=== PATIENT | female | born 1945 | race Hispanic/Latino ===

== ENCOUNTER 2018-06-28 15:38 | Outpatient (CLI) | payer MEDICARE, BC ==
--- NOTE | 2018-06-28 17:01 | MRI ---
MRI OF BRAIN WITH AND WITHOUT CONTRAST: 06/28/18 HISTORY: Multiple myeloma. Balance issues. COMPARISON: None. TECHNIQUE: Brain MRI is performed with and without intravenous gadolinium administration. Multisequential, multi planar imaging is performed. FINDINGS: No hemorrhage on the axial gradient echo sequence. No parenchymal mass, mass effect or midline shift. Age appropriate atrophy. Cortical leger-white matte r differentiation is preserved. Ventricles and sulci are patent and symmetric. Confluent T2 and FLAIR white matter hyperintensity due to chronic small vessel ischemic change. Adequ ate aeration of the sinuses and mastoid air cells. No abnormal signal intensity in the calvarium. No pathologic enhancement of the brain parenchyma. IMPRESSION: 1. No pathologic enhancement of the brain parenchyma. No abnormal marrow signal intensity in the visualized calvarium. 2. Age appropriate atrophy. Chronic small vessel ischemic changes of the white matter identified . POS: [facility]
--- NOTE | 2018-06-28 18:09 | RAD ---
HISTORY: Multiple myeloma staging. C90.00 - skeletal bone survey. A total of 19 radiographs of the skeleton obtained. The calvarium demonstrates a small area of lucency in the parietal bone. I cannot determine whether t his is right or left parietal bone. The rest of the calvarium does not demonstrate any significant ev idence of abnormalities. The cervical spine is unremarkable. Vertebroplasty changes seen in the lower thoracic spine with exte nsive osteoporosis seen in the thoracic spine. The lumbar spine is unremarkable. Atherosclerotic calcifications of the aorta seen. Upper and lower extremities in the visualized portions are unremarkable with no definite evidence of obvious lytic lesions. The pelvis is also unremarkable. IMPRESSION: Possible small parietal calvarial lesion. POS: [facility]
== END 2018-06-28 15:39 | disposition home or self-care (01) ==
LOC: MRI 15:38
PROVIDERS: ATTEND Internal Medicine Hematology & Oncology
DX: C90.00 Multiple myeloma not having achieved remission (principal); R53.1 Weakness; N18.4 Chronic kidney disease, stage 4 (severe); D63.1 Anemia in chronic kidney disease; D50.9 Iron deficiency anemia, unspecified
CPT/HCPCS: 70553; 77075; 80053; 82232; 82248; 83615; 83883; 84100; 84165; 84550

== ENCOUNTER 2018-07-05 09:08 | Day surgery (SDC) | payer MEDICARE, BC ==
[2018-07-04 14:43] VITALS: BMI 25.4
[2018-07-05 09:48] LABS: INR-International Normal Ratio 1.1; PTT 30.1 SEC (22.9-36.1); Prothrombin Time 14.2 SEC (12.0-14.7)
--- NOTE | 2018-07-05 13:17 | CT ---
CT GUIDED PERCUTANEOUS BONE MARROW ASPIRATION AND BIOPSY RIGHT ILIAC BONE: 07/05/2018 HISTORY: Patient with subcutaneous soft tissue swelling, predominantly involving the lower extremities. Findi ngs worrisome for multiple myeloma. TECHNIQUE: The procedure, including the risks and complications, was explained to the patient, and informed cons ent was obtained. The patient was placed on the CT scan table in the prone position. Grid localizer s were placed over each iliac bone, and a noncontrasted CT scan was obtained. An area overlying the right iliac bone was marked, and the area was meticulously prepped and draped in the usual sterile fa shion. The skin and subcutaneous tissues were infiltrated with buffered 1% Lidocaine for local anesthesia. A small skin incision was made. An 11 gauge bone biopsy needle was advanced to the iliac bone, and p osition was confirmed with three axial noncontrasted CT images. The needle was then advanced just th rough the cortex, and bone marrow aspirate was obtained with approximately 8 mL of bone marrow aspira te obtained. A 1.5 cm bone biopsy was then performed with a drill and bone biopsy needle. Hemostasi s was achieved with direct pressure. The patient tolerated the procedure well and without immediate complications. FINDINGS: Review of the pre-biopsy images demonstrate gas incidentally within the urinary bladder, with a focus of gas seen just outside the wall of the urinary bladder, which may be a gas track in the region of the detrusor muscle. Findings are worrisome for emphysematous cystitis. As a result, a noncontraste d CT scan through the pelvis was also obtained. Please see that dictation for further details. Steffany ent will be transported to the emergency department for further treatment. Findings were discussed w deana Guerrero, the emergency department physician, on 07/05/2018, at 1248 hours. IMPRESSION: 1. Evidence of gas within the wall of the urinary bladder, with the suggestion of foci of gas just o utside the urinary bladder, and findings are worrisome for emphysematous cystitis. The patient will be transported to the emergency department for further treatment. 2. Small to moderate amount of ascites with subcutaneous edema, circumferentially involving the lowe r abdomen and pelvis, as well as involving the visualized upper extremities. 3. Dense atherosclerotic calcifications. 4. Technically successful CT guided bone marrow aspiration and biopsy from the right iliac bone. Mikey thalexi is currently pending. CODE CR POS: [facility]
--- NOTE | 2018-07-05 13:26 | CT ---
NONCONTRAST CT PELVIS: DATE: 07/05/18. HISTORY: Gas seen within the urinary bladder wall on imaging for CT-guided bone marrow aspiration and biopsy o f the iliac bone. As a result, a CT scan of the pelvis was obtained for further evaluation. FINDINGS: There is gas seen within the wall of the urinary bladder with foci of gas seen adjacent to the right aspect of the urinary bladder which appears to be just outside the wall of the urinary bladder and ma y be related to gastrectomy in the region of the detrusor muscle. These findings are worrisome for e mphysematous cystitis. The uterus is not visualized, likely related to hysterectomy. There is small to moderate amount of intraperitoneal free fluid seen within the visualized lower abd omen and upper pelvis. Also, there is evidence of subcutaneous edema diffusely involving the pelvis and proximal upper extremities. Dense vascular calcifications are seen in the iliac and femoral arteries. IMPRESSION: 1. Evidence for emphysematous cystitis. The patient will be transported to the emergency department for further evaluation and treatment. These findings were discussed with Dr. Guerrero in the emergency department. The patient reportedly had prior CT scan obtained at [facility] recently, but those images are not available for evaluation. 2. Ascites. 3. Subcutaneous edema. POS: [facility]
--- NOTE | 2018-07-06 13:25 | CT ---
CT GUIDED PERCUTANEOUS BONE MARROW ASPIRATION AND BIOPSY RIGHT ILIAC BONE: 07/05/2018 HISTORY: Patient with subcutaneous soft tissue swelling, predominantly involving the lower extremities. Findi ngs worrisome for multiple myeloma. TECHNIQUE: The procedure, including the risks and complications, was explained to the patient, and informed cons ent was obtained. The patient was placed on the CT scan table in the prone position. Grid localizer s were placed over each iliac bone, and a noncontrasted CT scan was obtained. An area overlying the right iliac bone was marked, and the area was meticulously prepped and draped in the usual sterile fa shion. The skin and subcutaneous tissues were infiltrated with buffered 1% Lidocaine for local anesthesia. A small skin incision was made. An 11 gauge bone biopsy needle was advanced to the iliac bone, and p osition was confirmed with three axial noncontrasted CT images. The needle was then advanced just th rough the cortex, and bone marrow aspirate was obtained with approximately 8 mL of bone marrow aspira te obtained. A 1.5 cm bone biopsy was then performed with a drill and bone biopsy needle. Hemostasi s was achieved with direct pressure. The patient tolerated the procedure well and without immediate complications. FINDINGS: Review of the pre-biopsy images demonstrate gas incidentally within the urinary bladder wall, with a focus of gas seen just outside the wall of the urinary bladder, which may be a gas tracking in the re gion of the detrusor muscle. Findings are worrisome for emphysematous cystitis. As a result, a nonc ontrasted CT scan through the pelvis was also obtained. Please see that dictation for further detail s. Patient will be transported to the emergency department for further treatment. Findings were dis cussed with Dr. Guerrero, the emergency department physician, on 07/05/2018, at 1248 hours. IMPRESSION: 1. Evidence of gas within the wall of the urinary bladder, with the suggestion of foci of gas just o utside the urinary bladder, and findings are worrisome for emphysematous cystitis. The patient will be transported to the emergency department for further treatment. 2. Small to moderate amount of ascites with subcutaneous edema, circumferentially involving the lowe r abdomen and pelvis, as well as involving the visualized upper extremities. 3. Dense atherosclerotic calcifications. 4. Technically successful CT guided bone marrow aspiration and biopsy from the right iliac bone. Pa thalexi is currently pending. CODE CR
== END 2018-07-05 13:25 | disposition short-term general hospital (02) ==
LOC: CT 09:08
PROVIDERS: ATTEND Internal Medicine Hematology & Oncology
PROC: 0QB23ZX Excision of Right Pelvic Bone, Percutaneous Approach, Diagnostic (ICD-10-PCS; principal; 2018-07-05)
DX: M79.89 Other specified soft tissue disorders (principal); E10.9 Type 1 diabetes mellitus without complications; K21.9 Gastro-esophageal reflux disease without esophagitis; E78.00 Pure hypercholesterolemia, unspecified; Z79.82 Long term (current) use of aspirin; Z79.899 Other long term (current) drug therapy
CPT/HCPCS: 20225; 36415; 72192; 77002; 85610; 85730; 88184; 88237; 88264; 88280

== ENCOUNTER 2018-07-05 13:27 | Inpatient (IN) | payer MEDICARE, BC ==
[~2018-07-05 13:27] MED LIST: Sodium Bicarbonate 2.5 MEQ/5 ML VIAL ONE
[2018-07-05 15:03] LABS: Bilirubin Small (Negative); Blood, Urine Large (Negative); Clarity CLOUDY (Clear); Glucose, Urine (Dipstick) 250 mg/dL (Negative); Leukocyte Small (Negative); Nitrite Negative (Negative); Protein, Urine (Dipstick) 300 mg/dL (Neg-Trace); Specific Gravity, Urine 1.019 (1.002-1.036); pH, Urine 5.5 (5.0-9.0)
[2018-07-05 15:04] LABS: Bacteria/HPF 4+ HPF (None Seen); Squamous Epithelial 0-3 HPF (0-3)
[2018-07-05 15:09] LABS: Hyaline Casts/LPF 7-10 HYALINE CAST LPF (0-3 Hyaline); Pathc Cast-AUWi Flag 3.65 (0-2.49)
[2018-07-05 16:00] LABS: ALT (SGPT) 34 U/L (8-55); AST (SGOT) 66 U/L (5-34); Albumin 1.7 g/dL (3.4-4.8); Alkaline Phosphatase 78 U/L (40-150); Anion Gap 11 mmol/L (10-20); BUN (Urea Nitrogen) 45 mg/dL (9.8-20.1); Calc. Creatinine Clearance 0 mL/min (70-130); Calcium 7.5 mg/dL (7.8-10.44); Carbon Dioxide 23 mmol/L (23-31); Chloride 107 mmol/L (98-107); Estimated GFR-MDRD 16; Globulin 3.1 g/dL (2.4-3.5); Glucose 188 mg/dL (83-110); Protein, Total 4.8 g/dL (6.0-8.3); Sodium 138 mmol/L (136-145)
[2018-07-05 16:07] LABS: Potassium 2.8 mmol/L (3.5-5.1)
[2018-07-05 16:09] LABS: Anisocytosis SLIGHT = 6-15 cells (100X) (0-5/hpf); Hemoglobin 11.7 g/dL (12.0-16.0); Hypochromia SLIGHT = 6-15 cells (100X) (0-5/hpf); Lymphocytes 4 % (21-51); MDiff Complete? YES; Mean Corpuscular HGB CONC 32.7 g/dL (32.0-36.0); Mean Corpuscular Hemoglobin 29.9 pg (27.0-31.0); Mean Corpuscular Volume 91.7 fL (78.0-98.0); Mean Platelet Volume 12.5 fL (7.4-10.4); Monocytes 3 % (0-10); Neutrophil 93 % (42-75); PLT Morphology Comment PLT clumps seen-ADEQ; Platelet Count 101 thou/uL (130-400); Polychromasia SLIGHT = 2-3 cells (100X) (0-2/hpf); RBC Distribution Width 14.8 % (11.5-14.5); White Blood Cell (WBC) Count 4.9 thou/uL (4.8-10.8)
[2018-07-05] MEDS ORDERED: Potassium Chloride 20 MEQ TAB ONE (16:44)
--- NOTE | 2018-07-05 17:08 | RAD ---
PORTABLE AP CHEST X-RAY 07/05/18 HISTORY: Free air in the urinary bladder wall. Pain left side for a couple of weeks. COMPARISON: None available. FINDINGS: The cardiac silhouette and pulmonary vasculature are within normal limits. The lungs are clear. Vascu lar calcifications are seen in the thoracic aorta. Osteopenia is present. Vascular calcifications are seen in the thoracic aorta. Osteopenia is present. Vertebroplasty changes are seen in the lower thor acic spine. Surgical clips overlie the right upper quadrant. IMPRESSION: No acute cardiopulmonary process. POS: [facility]
[2018-07-05] MEDS ORDERED: Nitroglycerin 0.4 MG TAB (25 Tab Bottle) SL PRN (17:36)
[2018-07-05] MEDS ORDERED: Loratadine 10 MG TAB PO PRN (17:36)
[2018-07-05] MEDS ORDERED: Senokot 8.6 MG TAB PO PRN ×2 (17:36)
[2018-07-05] MEDS ORDERED: Diabetic Tussin 200 MG/10 ML UDCUP PO PRN (17:36)
[2018-07-05] MEDS ORDERED: Bisacodyl 5 MG TAB PO PRN ×2 (17:36)
[2018-07-05] MEDS ORDERED: Calcium Carbonate 500 MG ChewTAB PO PRN ×2 (17:36)
[2018-07-05] MEDS ORDERED: Benzonatate 100 MG CAP PO PRN (17:36)
[2018-07-05] MEDS ORDERED: Mag-Al 1200 mg/1200 mg/30 ML UDCUP PO PRN ×2 (17:36)
[2018-07-05] MEDS ORDERED: hydrALAZINE 20 MG/ML VIAL SLOW IVP PRN (17:36)
[2018-07-05] MEDS ORDERED: Acetaminophen 325 MG TAB PO PRN (17:36)
[2018-07-05] MEDS ORDERED: Magnesium Sulfate 2 GM/100 ML BAG ONE (17:46)
[2018-07-05] MEDS ORDERED: cefTRIAXone\\ROCEPHIN 2 GM VIAL ONE (17:46)
[2018-07-05] MEDS ORDERED: cloNIDine 0.1 MG TAB ONE ×2 (17:59→18:04)
[2018-07-05] MEDS ORDERED: Potassium Chloride 20 MEQ in Sodium Chloride 0.9% 250 ML 250 ML IVPB ONE (18:00)
[2018-07-05] MEDS ORDERED: HumaLOG 300 UNITS/3 ML VIAL SC PRN (18:12)
[2018-07-05] MEDS ORDERED: Dextrose 50% Abboject 50 ML SYRINGE SLOW IVP PRN (18:12)
[2018-07-05] MEDS ORDERED: Dextrose 5% in Water 1,000 ML IV PRN (18:12)
--- NOTE | 2018-07-05 20:07 | CON ---
DATE OF CONSULTATION: 07/05/2018 NEPHROLOGY CONSULTATION REASON FOR CONSULTATION: Hypokalemia and CKD. HISTORY OF PRESENT ILLNESS: This is a 73-year-old female who developed anemia as well as acute kidne y injury was noted to have a creatinine of 2.9, prior baseline was 2.7. One month ago, she has also developed hypokalemia. The patient is being admitted for emphysematous cystitis. The patient denies known headache, numbness, tingling or weakness. The patient is also suffering from acute tubular ne crosis for which she is being treated. PAST MEDICAL HISTORY: Significant for hypertension, anemia, CKD, history of bone marrow biopsy, hist ory of emphysematous cystitis. Other pertinent past medical history is reviewed. SOCIOECONOMIC HISTORY: No alcohol use. FAMILY HISTORY: Negative for ESRD. REVIEW OF SYSTEMS: A 15-point review of systems was performed and was negative except for positives noted above. GENERAL: Weakness- HEAD: Headache- NECK: No swelling or lumps. NOSE: No epistaxis or discharge. EYES: No diplopia or pain. 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 NEUROPSYCHIATIC SYSTEMS: No suicidal ideation. No ideation. SKIN: Denies any rash or ulcer. CONSTITUTIONAL: No fever or chills. PHYSICAL EXAMINATION: GENERAL: Patient is awake, alert. VITAL SIGNS: Reviewed. HEAD/NECK: Normocephalic. Atraumatic. EYES: EOMI. No deformity. EARS: Clear. No ulcers. NOSE: Intact. No lesions. MOUTH: Clear. No discharge. THROAT: Clear. No exudate. LUNGS: Clear. No crackles. CARDIAC: S1, S2. No rub. ABDOMEN: Benign. BS+. GENITALIA/RECTUM: Ac absent. BACK/EXTREMITIES: Edema 0+ Ulcer- NEUROLOGICAL: Alert and motor intact. SKIN: Rash- Bruise- LYMPHATICS: Edema- Ulcer- LABORATORY DATA: Urine shows 300 protein with too numerous to count WBCs, hemoglobin 11.7, creatinin e is 2.9. ASSESSMENT AND RECOMMENDATIONS: 1. Acute kidney injury with chronic kidney disease, workup is pending. Most likely has acute tubula r necrosis versus glomerulonephritis. 2. Edema, anasarca. Would recommend using Lasix after potassium has been corrected. 3. Hypokalemia. Recommend 40 mEq of potassium by mouth and recheck potassium in a few hours. 4. Medications based on glomerular filtration rate are appropriate. No indication for dialysis. 5. Hypomagnesemia. Would recommend 1 gram of mag sulfate replacement.
--- NOTE | 2018-07-05 21:05 | HP ---
DATE OF ADMISSION: 07/05/2018 PRIMARY CARE PHYSICIAN: Dr. Torres at [facility]. CHIEF COMPLAINT: Air in the bladder on CT scan. HISTORY OF PRESENT ILLNESS: Ms. Escalante is a pleasant 73-year-old female with past medical history of chronic kidney disease, currently undergoing workup at [facility] as well as a history of un explained anemia under care of Dr. Coon who was sent to the emergency room for the above-mentioned complaint. History is mainly obtained by the patient herself as well as her and electronic medical records have been reviewed. The patient is getting Nephrology workup done at [facility] for chronic kidney disease, which wa s diagnosed earlier this year. She reports that she has been going to work up until March of this yea r when she had a mechanical fall and since then she has been feeling very weak. She was found to hav e chronic kidney disease and today, she underwent a bone marrow biopsy as ordered by Dr. Coon for workup of her unexplained chronic anemia. The CT scan done for the bone marrow biopsy showed possibl e air in the bladder and question of emphysematous cystitis. Labs were checked and she was found to have hypokalemia with a potassium of 2.8, which the patient reports is not new for her. She has been hypokalemic and is undergoing workup for that. Her urinalysis showed +4 bacteria, so she is now devin ng admitted for hypokalemia as well as urinary tract infection and possible emphysematous cystitis. The patient reports feeling very weak and tired. She denies any chest pain or shortness of breath, b ut complains of having increased swelling in her legs and weight gain. She has poor appetite. She i s very weak and mostly lies in bed because of this. She denies any nausea, vomiting, diarrhea. She does have some diffuse abdominal pain mainly in the left upper quadrant. Denies any dysuria, frequen cy, urgency or any blood in her stools. PAST MEDICAL HISTORY: 1. Hypertension. 2. Chronic kidney disease stage 3. 3. Chronic anemia. 4. Diabetes mellitus type 2. PAST SURGICAL HISTORY: 1. Bone marrow biopsy earlier this morning. 2. Appendectomy. 3. History of what sounds like carotid arterial stenting versus endarterectomy. 4. Cholecystectomy. 5. Hysterectomy. PSYCHIATRIC: No anxiety, no depression. SOCIAL HISTORY: She is and lives with her . No history of drug, tobacco or alcohol a buse. FAMILY HISTORY: No significant family history of any chronic kidney disease. No history of any canc er, premature coronary artery disease or stroke. ALLERGIES: No known medication allergies. CURRENT MEDICATIONS: As follows. As per the ER record and further need to be confirmed. Bumex 1 mg daily, fenofibric acid 135 mg daily, losartan 50 mg daily, metoprolol 100 mg daily, vitamin D3 2000 units daily, Zofran as needed. REVIEW OF SYSTEMS: A 12-point review of systems was done. It is negative except for those mentioned in the history and physical. LABORATORY DATA: CBC shows hemoglobin 11.7, which is normochromic normocytic. Platelet count of 101 ,000. She has 93% neutrophils with normal WBC count. Serum chemistries show potassium of 2.8, BUN 4 5, creatinine 2.96 with GFR of 16, glucose 188. Lactic acid normal, magnesium 1.5, AST 60, otherwise normal liver enzymes, BNP of 580. Chest x-ray by my review shows no cardiopulmonary abnormalities. A 12-lead EKG by my review shows nonspecific ST and T-wave abnormalities in the lateral leads, sinus rhythm with a heart rate of [address] scan done earlier today shows findings of air i n the urinary bladder concerning with emphysematous cystitis. Ascites is seen and subcutaneous edema is seen. PHYSICAL EXAMINATION: VITAL SIGNS: Upon presentation, heart rate 73, respirations 17, saturating 97% on room air, temperat ure 97.6, blood pressure 210/93. GENERAL: She appears pale and chronically ill. No acute distress. Awake, alert, oriented x3. HEENT: Mild scleral icterus is noticed. Head is normocephalic, atraumatic. Pupils equal and reacti ve to light and accommodation. Extraocular movement intact. NECK: Supple without any lymphadenopathy, JVD or bruit. CHEST: Clear to auscultation without any wheezing, rales or rhonchi. CARDIOVASCULAR: Rate and rhythm is regular without any murmur, rubs or gallops. ABDOMEN: Mildly tender to palpation in the left upper quadrant without any palpable hepatosplenomega ly. No fluid wave. No guarding, rebound or rigidity. EXTREMITIES: Show pitting edema bilaterally extending from the foot to midcalf. SKIN: Shows ecchymosis and bruising in bilateral upper extremities. NEUROLOGIC: Nonfocal. PSYCHIATRIC: Normal affect. IMPRESSION AND PLAN: 1. Emphysematous cystitis. The patient will be treated with broad spectrum IV antibiotics. She chio l be started on levofloxacin and Rocephin. We will obtain a renal ultrasound to rule out any abscess formation or extension of the infection. She is currently hemodynamically stable and sepsis will al so be ruled out. We will also request consultation with Urology in case she needs any intervention f or this. 2. Hypertensive urgency. We will restart her home medications once confirmed and use p.r.n. antihyp ertensives for now. Reportedly, she is undergoing a workup for secondary hypertension by her nephrol ogist at [facility]. 3. Hypokalemia. She has received a total of 60 mEq of potassium in the emergency room along with ma gnesium sulfate IV. We will consult Nephrology and recheck labs later in the evening today after sup plementation. Once again, this is chronic for the patient. 4. Chronic kidney disease. 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 She is undergoing workup for possible multiple myeloma versus monoclonal gammop athy of undetermined significance. She had a bone survey done earlier this month with cher Birdh showed possible small lesion in the parietal bone. She does not have any other bony lesions on the skeletal survey. 5. Abdominal pain. We will get an abdominal ultrasound to rule out hepatosplenomegaly and excessive ascites as a cause of her left upper quadrant tenderness. I do not, however, feel any fluid wave on physical examination. 6. Anasarca secondary to nephrotic syndrome. At this time, we will hold the diuretics until the pot assium has been corrected. We will also obtain a transthoracic echocardiogram to rule out cardiac ca uses of third spacing of the fluid. The patient has not had this done at [facility] as far as I could tell. 7. Code status: Full code. Discussed with the patient and her . 8. Deep venous thrombosis and gastrointestinal prophylaxis. DISPOSITION: Ms. Escalante is currently being admitted to the hospital for emphysematous cystitis as well as hypertensive urgency and hypokalemia and hypomagnesemia. Her estimated length of stay at this time is 2-3 midnights. Further management will depend upon her clinical course.
[2018-07-05] MEDS: Famotidine 20 MG TAB PO SCH (21:10)
[2018-07-05] MEDS: Heparin 5,000 UNITS/ML VIAL SC SCH (21:10)
[2018-07-05 22:37] LABS: Anion Gap 9 mmol/L (10-20); BUN (Urea Nitrogen) 47 mg/dL (9.8-20.1); Calc. Creatinine Clearance 0 mL/min (70-130); Calcium 7.1 mg/dL (7.8-10.44); Carbon Dioxide 24 mmol/L (23-31); Chloride 109 mmol/L (98-107); Estimated GFR-MDRD 16; Glucose 214 mg/dL (83-110); Magnesium 1.9 mg/dL (1.6-2.6); Potassium 3.3 mmol/L (3.5-5.1); Sodium 139 mmol/L (136-145)
[2018-07-06 05:03] LABS: #Eosinphils 0.1 thou/uL (0.0-0.7); #Lymphocytes 1.3 thou/uL (1.20-3.40); #Monocytes 0.3 thou/uL (0.11-0.59); #Neutrophils 1.7 thou/uL (1.40-6.50); %Basophils 0.5 % (0.0-1.0); %Eosinophils 1.7 % (0.0-10.0); %Lymphocytes 38.1 % (21.0-51.0); %Monocytes 10.2 % (0.0-10.0); %Neutrophils 49.5 % (42.0-75.0); Hemoglobin 9.8 g/dL (12.0-16.0); Mean Corpuscular HGB CONC 31.9 g/dL (32.0-36.0); Mean Corpuscular Hemoglobin 29.6 pg (27.0-31.0); Mean Corpuscular Volume 92.7 fL (78.0-98.0); Mean Platelet Volume 11.4 fL (7.4-10.4); Platelet Count 144 thou/uL (130-400); Red Blood Cell (RBC) Count 3.32 mill/uL (4.20-5.40); White Blood Cell (WBC) Count 3.3 thou/uL (4.8-10.8)
[2018-07-06 05:25] LABS: Anion Gap 10 mmol/L (10-20); BUN (Urea Nitrogen) 45 mg/dL (9.8-20.1); Calc. Creatinine Clearance 17 mL/min (70-130); Calcium 6.9 mg/dL (7.8-10.44); Carbon Dioxide 22 mmol/L (23-31); Chloride 111 mmol/L (98-107); Estimated GFR-MDRD 16; Glucose 212 mg/dL (83-110); Potassium 3.6 mmol/L (3.5-5.1); Sodium 139 mmol/L (136-145)
--- NOTE | 2018-07-06 08:12 | ULT ---
ABDOMINAL ULTRASOUND: DATE: 07/06/18. PROVIDED CLINICAL HISTORY: Abdominal pain. FINDINGS: Evidence for left pleural effusion. The visualized abdominal aorta is nonaneurysmal. Pancreas and I VC are poorly visualized. The liver demonstrates no evidence for mass or intrahepatic biliary dilata tion. Free intraperitoneal fluid is seen above the right hepatic margin. The common duct is not dil ated. Gallbladder is surgically absent. Kidneys demonstrate no evidence for hydronephrosis or mass. The spleen is nonenlarged and demonstrates no focal abnormality. IMPRESSION: 1. Left pleural effusion. 2. Free intraperitoneal fluid. POS: [facility]
[2018-07-06] MEDS: cefTRIAXone\\ROCEPHIN 1 GM in Sodium Chloride 0.9% 100 ML IVPB SCH (08:36)
[2018-07-06] MEDS: Heparin 5,000 UNITS/ML VIAL SC SCH ×2 (08:37→19:54)
--- NOTE | 2018-07-06 09:13 | PRG ---
DATE OF SERVICE: 07/06/2018 SUBJECTIVE: A 73-year-old female being seen for acute kidney injury. The patient denies any nausea, vomiting or chest pain. PHYSICAL EXAMINATION: GENERAL: Patient is awake, alert. VITAL SIGNS: Afebrile, pulse 69, breathing at 16, blood pressure 135/62. GENERAL APPEARANCE AND MENTAL STATUS: Fair. HEAD/NECK: Normocephalic. Atraumatic. EYES: EOMI. No deformity. EARS: Clear. No ulcers. NOSE: Intact. No lesions. MOUTH: Clear. No discharge. THROAT: Clear. No exudate. LUNGS: Clear. No crackles. CARDIAC: S1, S2. No rub. ABDOMEN: Benign. BS+. GENITALIA/RECTUM: Ac absent. BACK/EXTREMITIES: Lower extremities have edema. Ulcer-. NEUROLOGICAL: Alert and motor intact. SKIN: Rash- Bruise- LYMPHATICS: Edema- Ulcer-. LABORATORY DATA: Show creatinine is 2.9, potassium 3.6. ASSESSMENT AND RECOMMENDATIONS: 1. Acute kidney injury with chronic kidney disease stage 4, stable. Proteinuria workup is pending. 2. Edema. We would recommend starting 40 mg of Lasix p.o. No indication for dialysis. 3. Anemia, stable. 4. Medications based on glomerular filtration rate are appropriate.
[2018-07-06] MEDS ORDERED: Spironolactone 25 MG TAB PO SCH ×2 (09:15→09:45)
[2018-07-06] MEDS: Furosemide 40 MG/4 ML VIAL SLOW IVP SCH (09:54)
[2018-07-06] MEDS: HumaLOG 300 UNITS/3 ML VIAL SC PRN (12:33)
--- NOTE | 2018-07-06 15:25 | PDOC.PN ---
- Subjective Encounter Start Date: 07/06/18 Encounter Start Time: 15:23 Subjective: feels better.no new complaints.very weak - Objective MAR Reviewed: Yes Vital Signs & Weight: Vital Signs (12 hours) Temp Pulse Resp BP Pulse Ox 07/06/18 12:32 97.4 F L 68 16 145/65 H 97 07/06/18 07:28 98 07/06/18 07:25 98.3 F 69 16 113/61 98 Weight Weight 137 lb 4.8 oz I&O: 07/05/18 07/06/18 07/07/18 06:59 06:59 06:59 Intake Total 840 Balance 840 Result Diagrams: 07/06/18 04:39 07/06/18 04:39 Additional Labs: Accuchecks 07/06/18 07/06/18 07/05/18 10:37 06:01 16:52 POC Glucose 203 H 184 H 172 H Microbiology 07/05/18 14:47 Urine voided Urine Culture - Preliminary Laboratory Tests 07/05/18 07/05/18 07/05/18 15:37 15:37 15:37 Hgb 11.7 L Potassium 2.8 L* Magnesium 1.5 L 07/05/18 07/06/18 07/06/18 22:03 04:39 04:39 Hgb 9.8 L Potassium 3.3 L 3.6 Magnesium 1.9 Microbiology 07/05/18 14:47 Urine voided Urine Culture - Preliminary Phys Exam - Physical Examination Constitutional: NAD pale HEENT: PERRLA, moist MMs, sclera anicteric, oral pharynx no lesions Neck: no nodes, no JVD, supple, full ROM Respiratory: no wheezing, no rales, no rhonchi, clear to auscultation bilateral Cardiovascular: RRR, no significant murmur, no rub Gastrointestinal: soft, non-tender, no distention, positive bowel sounds Musculoskeletal: no edema, pulses present BM biopsy site looks clean w scant blood on dresing Neurological: non-focal, normal sensation, moves all 4 limbs Psychiatric: normal affect, A&O x 3 Skin: no rash Dx/Plan (1) Emphysematous cystitis Code(s): N30.80 - OTHER CYSTITIS WITHOUT HEMATURIA Status: Acute (2) UTI (urinary tract infection) Status: Acute Qualifiers: Urinary tract infection type: acute cystitis Hematuria presence: without hematuria Qualified Code(s): N30.00 - Acute cystitis without hematuria (3) Hypokalemia Code(s): E87.6 - HYPOKALEMIA Status: Acute (4) Anasarca Code(s): R60.1 - GENERALIZED EDEMA Status: Acute (5) Nephrotic syndrome Code(s): N04.9 - NEPHROTIC SYNDROME WITH UNSPECIFIED MORPHOLOGIC CHANGES Status: Chronic (6) CKD (chronic kidney disease) stage 4, GFR 15-29 ml/min Code(s): N18.4 - CHRONIC KIDNEY DISEASE, STAGE 4 (SEVERE) Status: Chronic (7) General weakness Code(s): R53.1 - WEAKNESS Status: Chronic (8) Chronic anemia Code(s): D64.9 - ANEMIA, UNSPECIFIED Status: Chronic Comment: S/P BM Bx - Plan continue antibiotics, out of bed/ambulate, DVT proph w/SCDs restart lasix.hold Bumex.restart Aldactone. -: Bp controlled. restart home meds slowly.monitor -: renal Fx stable.Monitor.hold JULIANNA-I/ARB.Pt on two JULIANNA-I -: urine Cx pending. empiric renally dosed ABx. -: Urology recs pending. * .am labs Review of Systems - Review of Systems Constitutional: weakness, malaise. negative: fever, chills, sweats, other ENT: negative: Ear Pain, Ear Discharge, Nose Pain, Nose Discharge, Nose Congestion, Mouth Pain, Mouth Swelling, Throat Pain, Throat Swelling, Other Respiratory: negative: Cough, Dry, Shortness of Breath, Hemoptysis, SOB with Excertion, Pleuritic Pain, Sputum, Wheezing Cardiovascular: negative: chest pain, palpitations, orthopnea, paroxysmal nocturnal dyspnea, edema, light headedness, other Gastrointestinal: negative: Nausea, Vomiting, Abdominal Pain, Diarrhea, Constipation, Melena, Hematochezia, Other Genitourinary: negative: Dysuria, Frequency, Incontinence, Hematuria, Retention , Other Musculoskeletal: Back Pain Skin: negative: Rash, Lesions, Dick, Bruising, Other Neurological: negative: Weakness, Numbness, Incoordination, Change in Speech, Confusion, Seizures, Other - Medications/Allergies Allergies/Adverse Reactions: Allergies Allergy/AdvReac Type Severity Reaction Status Date / Time No Known Allergies Allergy Verified 07/04/18 14:45 Medications: Current Medications Acetaminophen (Tylenol) 650 mg PO Q4H PRN PRN Reason: Headache/Fever or Pain Al Hydroxide/Mg Hydroxide (Maalox) 15 ml PO Q4H PRN PRN Reason: Heartburn or Indigestion Amlodipine Besylate (Norvasc) 10 mg PO DAILY [facility] Benzonatate (Tessalon) 100 mg PO Q4H PRN PRN Reason: Cough Bisacodyl (Dulcolax) 10 mg PO DAILYPRN PRN PRN Reason: Constipation Calcium Carbonate (Tums) 1,000 mg PO Q4H PRN PRN Reason: Heartburn or Indigestion Clonidine (Catapres) 0.1 mg PO Q4H PRN PRN Reason: Systolic BP > 160 Dextrose/Water (Dextrose 50%) 25 gm SLOW IVP PRN PRN PRN Reason: Hypoglycemia Famotidine (Pepcid) 20 mg PO QPM [facility] Last Admin: 07/05/18 21:10 Dose: 20 mg Fenofibrate (Tricor) 145 mg PO DAILY [facility] Furosemide (Lasix) 40 mg SLOW IVP DAILY [facility] Last Admin: 07/06/18 09:54 Dose: 40 mg Glucagon (Glucagon) 1 mg IM PRN PRN PRN Reason: Hypoglycemia Guaifenesin (Robitussin Sf) 200 mg PO Q4H PRN PRN Reason: Cough Heparin Sodium (Porcine) (Heparin) 5,000 units SC BID [facility] Last Admin: 07/06/18 08:37 Dose: 5,000 units Hydralazine HCl (Apresoline) 10 mg SLOW IVP Q4H PRN PRN Reason: Systolic BP > 170 Ceftriaxone Sodium 1 gm/ (Sodium Chloride) 100 mls @ 200 mls/hr IVPB Q24HR [facility] Last Admin: 07/06/18 08:36 Dose: 100 mls Dextrose/Water (D5w) 1,000 mls @ 0 mls/hr IV .Q0M PRN PRN Reason: Hypoglycemia Levofloxacin 250 mg/ Device 50 mls @ 100 mls/hr IVPB 2000 [facility] Insulin Human Lispro (Humalog) 0 units SC .MODERATE SLIDING SC PRN PRN Reason: Moderate Correctional Scale Last Admin: 07/06/18 12:33 Dose: 4 unit Insulin Human Lispro (Humalog) 0 units SC .BEDTIME SLIDING SC PRN PRN Reason: Bedtime Correctional Scale Loratadine (Claritin) 10 mg PO DAILYPRN PRN PRN Reason: Sinus Symptoms Metoprolol Succinate (Toprol Xl) 100 mg PO DAILY [facility] Nitroglycerin (Nitrostat) 0.4 mg SL Q5MIN PRN PRN Reason: Chest Pain Ondansetron HCl (Zofran) 4 mg IVP Q6H PRN PRN Reason: Nausea/Vomiting Senna (Senokot) 2 tab PO HSPRN PRN PRN Reason: Constipation Sodium Chloride (Flush - Normal Saline) 10 ml IVF Q12HR [facility] Last Admin: 07/06/18 09:54 Dose: 10 ml Sodium Chloride (Flush - Normal Saline) 10 ml IVF PRN PRN PRN Reason: Saline Flush Spironolactone (Aldactone) 25 mg PO DAILY [facility] Tramadol HCl (Ultram) 50 mg PO Q4H PRN PRN Reason: Moderate Pain (4-6)
[2018-07-06] MEDS: Ondansetron HCl/PF 4 MG/2 ML Vial IVP PRN (19:08)
[2018-07-06] MEDS: Famotidine 20 MG TAB PO SCH (19:54)
[2018-07-07] MEDS: Ondansetron HCl/PF 4 MG/2 ML Vial IVP PRN ×4 (01:08→20:59)
[2018-07-07] MEDS: cloNIDine 0.1 MG TAB PO PRN (02:57)
[2018-07-07 05:40] LABS: Anion Gap 9 mmol/L (10-20); BUN (Urea Nitrogen) 48 mg/dL (9.8-20.1); Calc. Creatinine Clearance 17 mL/min (70-130); Calcium 7.2 mg/dL (7.8-10.44); Carbon Dioxide 23 mmol/L (23-31); Chloride 110 mmol/L (98-107); Estimated GFR-MDRD 16; Glucose 179 mg/dL (83-110); Magnesium 1.6 mg/dL (1.6-2.6); Potassium 3.2 mmol/L (3.5-5.1); Sodium 139 mmol/L (136-145)
--- NOTE | 2018-07-07 08:39 | CON ---
DATE OF CONSULTATION: 07/06/2018 Consultation is requested for emphysematous pyelonephritis. HISTORY OF PRESENT ILLNESS: Patient is a 73-year-old female with severe fatigue and malaise, but no specific lower urinary tract infections and have an outpatient pelvic CT scan that showed significant emphysematous cystitis and was admitted for IV antibiotics with urinary tract infection and I was consulted. She has had urinary tract infections for years, but did not realize that she had one more recently. She denies any concern for leakage. She has a history of kidney stones and passed them on her own, but she has not had one since long ago. She has no gross hematuria and denied any bladder problems or leakage. Normally, she has frequency q.4 hours and nocturia x2. She does admit to some hesitancy, variable stream. Denies incomplete emptying. PAST MEDICAL HISTORY: Includes hypertension, chronic renal insufficiency, anemia for which she is undergoing a workup with Oncology, diabetes for at least 25-30 years. PAST SURGICAL HISTORY: Includes bone marrow biopsy in 2017 and another one more recently, appendectomy, gallbladder, and vascular procedure for carotid. ASSIGNMENT DESK ASSISTANT HISTORY: Includes vaginal deliveries, right breast biopsy and a total laparoscopic vaginal hysterectomy with bilateral salpingo-oophorectomy for bleeding, but not cancer. MEDICATIONS: Include Norvasc 10 mg daily, Claritin, Toprol 100 mg, Bumex 1 mg daily, fenofibric acid 135 mg daily, vitamin D3 and Zofran as needed. SOCIAL HISTORY: She does not drink, smoke, or use drugs. REVIEW OF SYSTEMS: Reveals she had a colonoscopy 10-15 years ago that was normal as well as a mammogram about 10 years ago along with a Pap smear, all of which were normal. She has no chest pain. She has shortness of breath with exertion, but otherwise not at rest. She has no cough. She has nausea, but no vomiting. She has diarrhea normally, but denies any history of diverticular disease or diverticulitis. She has no concerns for prolapse of the bladder, but she does have concern for intermittent lower extremity swelling. FAMILY HISTORY: Reveals mom at childbirth when the patient was only 8 and the father at 81 of old age, but no cancers or either. PHYSICAL EXAMINATION: GENERAL: She appears pale in the bed, but is alert and oriented, does seem somewhat frail or weak. VITAL SIGNS: T-max is 98.5, current 98.3. Blood pressure 113/61, heart rate 69 , 98% on room air. HEENT: No scleral icterus. NECK: No JVD. HEART: Regular rate and rhythm. No murmurs, gallops, or rubs. LUNGS: Clear to auscultation bilaterally. ABDOMEN: Soft, nondistended, normoactive bowel sounds. EXTREMITIES: No lower extremity edema. A Monterroso catheter was placed for yellow urine upon my request previously. LABORATORY AND DIAGNOSTIC DATA: Reveals CBC with a white count of 3.3, anemia of 9.8 and 30.8, and platelets of 144 from 101 previously. BUN and creatinine are 45 and 2.92 with that being 2.96 upon admission. In 05/2018, it was ranged from 2.39 to 2.61 and was this as high as 1.87 back in 03/2017. Urinalysis from 07/05/2018, reveals too numerous to count wbc's, 11-20 rbc's, 4 + bacteria and 0-3 squamous cells with a culture pending. Urinalysis from the [facility] from 05/26/2018 showed 20-50 wbc's, 10-19 red blood cells, many bacteria, and occasional skin cells, but no culture was sent. Urinalysis from 05/17/2017, grew Klebsiella at a low colony count of 8000. Renal ultrasound from 07/06/2018, reveals no hydro stones or masses and there were no bladder images to review. Pelvic CT from 07/05/2018 reviewed, reveals emphysematous cystitis and significant ascites. The bladder was relatively decompressed on the sagittal images. A renal ultrasound from [facility] from 06/06/2018, shows medical renal disease with the bladder appearing okay and bilateral jets noted; however, I was only able to view the images of the kidney--none of the bladder were personally reviewed. The report did not mention any concern for emphysematous cystitis. ASSESSMENT AND PLAN: We have a 73-year-old female with emphysematous cystitis and [id number] lower urinary tract symptoms associated with it. She is already on ceftriaxone and Levaquin and I would await specific cultures and reviewed how she will need to complete at least 4 weeks of antibiotic therapy for this. For now I want the bladder to rest, because I do not want to have to fill it and contract, but the goal would to be able to get this out before going home. We'd also need to ensure she is emptying adequately before leaving without a monterroso. She can be followed up as an outpatient where it may be beneficial to perform cystoscopy after all inflammation has settled. This is likely to have little yield given the lack of concern for bladder mass on CT and given her lack of smoking history. ALISON
[2018-07-07] MEDS: Fenofibrate Nanocrystallized 145 MG TAB PO SCH (08:43)
[2018-07-07] MEDS: Furosemide 40 MG/4 ML VIAL SLOW IVP SCH (08:43)
[2018-07-07] MEDS: Heparin 5,000 UNITS/ML VIAL SC SCH ×2 (08:44→20:57)
[2018-07-07] MEDS: cefTRIAXone\\ROCEPHIN 1 GM in Sodium Chloride 0.9% 100 ML IVPB SCH (08:48)
[2018-07-07] MEDS ORDERED: Spironolactone 25 MG TAB PO SCH (09:00)
[2018-07-07] MEDS ORDERED: Non-Formulary Item 1 EACH (Fenofibric Acid (Choline) [Fenofibric Acid] 135 MG) PO SCH (09:00)
[2018-07-07] MEDS ORDERED: Amlodipine 10 MG TAB PO SCH (09:00)
--- NOTE | 2018-07-07 11:08 | PRG ---
DATE OF SERVICE: 07/07/2018 NEPHROLOGY PROGRESS NOTE SUBJECTIVE: This is a 73-year-old female being seen for acute kidney injury. The patient denies any nausea, vomiting or chest pain. The patient still has bilateral lower extremity edema. PHYSICAL EXAMINATION: GENERAL: Patient is awake, alert. VITAL SIGNS: Afebrile, pulse 58, breathing 16, blood pressure 151/67. HEAD/NECK: Normocephalic. Atraumatic. EYES: EOMI. No deformity. EARS: Clear. No ulcers. NOSE: Intact. No lesions. MOUTH: Clear. No discharge. THROAT: Clear. No exudate. LUNGS: Clear. No crackles. CARDIAC: S1, S2. No rub. ABDOMEN: Benign. BS+. GENITALIA/RECTUM: Ac absent. BACK/EXTREMITIES: Edema 0+ Ulcer- NEUROLOGICAL: Alert and motor intact. SKIN: Rash- Bruise- LYMPHATICS: Edema- Ulcer- LABORATORY DATA: Show potassium 3.2, creatinine 2.9. ASSESSMENT AND PLAN: 1. Chronic kidney disease stage 4 with edema. Patient does not appear to have multiple myeloma, so she will need a kidney biopsy which can be setup as an outpatient. 2. Edema. Would recommend increasing the Lasix to 40 b.i.d. and adding Zaroxolyn every other day. 3. Proteinuria. SPEP and UPEP are pending. 4. Hypokalemia. Recommend aggressive potassium replacement.
--- NOTE | 2018-07-07 11:32 | PRG ---
DATE OF SERVICE: 07/07/2018 SUBJECTIVE: The patient did well overnight. Her strength is slowly improving, but she otherwise still feels weak. Catheter has been draining without difficulty and she is tolerating this well. Her vitals have been stable. She has remained afebrile with a heart rate of 69 , blood pressure 113/61, satting 98% on room air. Catheter is draining yellow urine. LABORATORY DATA: No new labs to review. The culture is still pending as young. We had a long discussion on preventing urinary tract infections including adding cranberry tablets and Estrace cream. We also reviewed how she needs to complete 4 weeks of an antibiotic and we would attempt to get the catheter out before discharge. All questions were answered. ASSESSMENT AND PLAN: We have a 73-year-old female admitted with emphysematous cystitis with minimal to no lower urinary tract symptoms now receiving IV antibiotics and awaiting culture. When the culture is back, assuming it can be treated with oral antibiotics then she can have the catheter removed on that day of discharge and ensure she is emptying adequately with checking a bladder scan. She should go home on 4 weeks of oral antibiotics. If the culture is multidrug resistant and only susceptible to IV antibiotics then she would need a PICC line placed for 4 weeks total of antibiotics. If she is unable to void adequately and has more than 200 mL remaining in the bladder, then I would send her out with a catheter and work on a voiding trial as an outpatient. I have coverage over the weekend and will communicate the plan to them, but again if she is ready to go from the culture standpoint, I would remove the catheter the day of discharge and ensure she is emptying before sending her out on 4 weeks of antibiotics. She can follow up with me as an outpatient and my staff will arrange this next week. ALISON
[2018-07-07 11:39] LABS: Anion Gap 10 mmol/L (10-20); BUN (Urea Nitrogen) 48 mg/dL (9.8-20.1); Calc. Creatinine Clearance 16 mL/min (70-130); Calcium 7.3 mg/dL (7.8-10.44); Carbon Dioxide 23 mmol/L (23-31); Chloride 109 mmol/L (98-107); Estimated GFR-MDRD 15; Glucose 203 mg/dL (83-110); Potassium 3.3 mmol/L (3.5-5.1); Sodium 139 mmol/L (136-145)
[2018-07-07] MEDS: Losartan 25 MG TAB PO SCH (14:01)
--- NOTE | 2018-07-07 14:34 | PDOC.PN ---
- Subjective Encounter Start Date: 07/07/18 Encounter Start Time: 14:32 Subjective: feels weak .care discussed w at bedside -: Pt very reluctant for PT . -: Home meds checked w and multiple discrepancies noted - Objective MAR Reviewed: Yes Vital Signs & Weight: Vital Signs (12 hours) Temp Pulse Resp BP BP Pulse Ox 07/07/18 08:43 58 L 184/82 H 07/07/18 08:00 97.7 F 58 L 19 184/82 H 97 07/07/18 03:45 151/67 H 07/07/18 03:00 98.0 F 65 20 191/83 H 97 07/07/18 02:57 191/83 H Weight Weight 137 lb 12.8 oz I&O: 07/06/18 07/07/18 07/08/18 06:59 06:59 06:59 Intake Total 840 960 Output Total 850 Balance 840 110 Result Diagrams: 07/06/18 04:39 07/07/18 11:13 Additional Labs: Accuchecks 07/07/18 07/07/18 07/06/18 10:52 05:39 20:01 POC Glucose 204 H 182 H 184 H 07/06/18 17:06 POC Glucose 137 H Microbiology 07/05/18 14:47 Urine voided Urine Culture - Preliminary Laboratory Tests 07/05/18 07/05/18 07/06/18 15:37 22:03 04:39 Creatinine 2.96 H 2.87 H 2.92 H 07/07/18 04:28 Creatinine 2.93 H Phys Exam - Physical Examination Constitutional: NAD HEENT: PERRLA, moist MMs, sclera anicteric, oral pharynx no lesions Neck: no nodes, no JVD, supple, full ROM Respiratory: no wheezing, no rales, no rhonchi, clear to auscultation bilateral Cardiovascular: RRR, no significant murmur, no rub Gastrointestinal: soft, non-tender, no distention, positive bowel sounds Musculoskeletal: no edema, pulses present Neurological: non-focal, normal sensation, moves all 4 limbs Psychiatric: normal affect, A&O x 3 Skin: no rash Dx/Plan (1) Emphysematous cystitis Code(s): N30.80 - OTHER CYSTITIS WITHOUT HEMATURIA Status: Acute (2) UTI (urinary tract infection) Status: Acute Qualifiers: Urinary tract infection type: acute cystitis Hematuria presence: without hematuria Qualified Code(s): N30.00 - Acute cystitis without hematuria (3) Hypokalemia Code(s): E87.6 - HYPOKALEMIA Status: Acute (4) Anasarca Code(s): R60.1 - GENERALIZED EDEMA Status: Acute (5) Nephrotic syndrome Code(s): N04.9 - NEPHROTIC SYNDROME WITH UNSPECIFIED MORPHOLOGIC CHANGES Status: Chronic (6) CKD (chronic kidney disease) stage 4, GFR 15-29 ml/min Code(s): N18.4 - CHRONIC KIDNEY DISEASE, STAGE 4 (SEVERE) Status: Chronic (7) General weakness Code(s): R53.1 - WEAKNESS Status: Chronic (8) Chronic anemia Code(s): D64.9 - ANEMIA, UNSPECIFIED Status: Chronic Comment: S/P BM Bx (9) HTN (hypertension) Code(s): I10 - ESSENTIAL (PRIMARY) HYPERTENSION Status: Chronic - Plan plan discussed w/ family, continue antibiotics, PT/OT, out of bed/ambulate, DVT proph w/SCDs Cont empiric ABx. follow Urine Cx. appreciate urology input -: Home meds reconciled again . DC Norvasc,Aldactone.Add losartan.cont BB -: increase lasix,add zaroxoly.add daily potassium. -: AM labs -: encouraged PT.arrange HH for DC. * . Review of Systems - Review of Systems Constitutional: negative: fever, chills, sweats, weakness, malaise, other ENT: negative: Ear Pain, Ear Discharge, Nose Pain, Nose Discharge, Nose Congestion, Mouth Pain, Mouth Swelling, Throat Pain, Throat Swelling, Other Respiratory: negative: Cough, Dry, Shortness of Breath, Hemoptysis, SOB with Excertion, Pleuritic Pain, Sputum, Wheezing Cardiovascular: negative: chest pain, palpitations, orthopnea, paroxysmal nocturnal dyspnea, edema, light headedness, other Gastrointestinal: negative: Nausea, Vomiting, Abdominal Pain, Diarrhea, Constipation, Melena, Hematochezia, Other Genitourinary: negative: Dysuria, Frequency, Incontinence, Hematuria, Retention , Other Musculoskeletal: negative: Neck Pain, Shoulder Pain, Arm Pain, Back Pain, Hand Pain, Leg Pain, Foot Pain, Other Skin: negative: Rash, Lesions, Dick, Bruising, Other Neurological: negative: Weakness, Numbness, Incoordination, Change in Speech, Confusion, Seizures, Other - Medications/Allergies Allergies/Adverse Reactions: Allergies Allergy/AdvReac Type Severity Reaction Status Date / Time No Known Allergies Allergy Verified 07/04/18 14:45 Medications: Current Medications Acetaminophen (Tylenol) 650 mg PO Q4H PRN PRN Reason: Headache/Fever or Pain Al Hydroxide/Mg Hydroxide (Maalox) 15 ml PO Q4H PRN PRN Reason: Heartburn or Indigestion Benzonatate (Tessalon) 100 mg PO Q4H PRN PRN Reason: Cough Bisacodyl (Dulcolax) 10 mg PO DAILYPRN PRN PRN Reason: Constipation Calcium Carbonate (Tums) 1,000 mg PO Q4H PRN PRN Reason: Heartburn or Indigestion Clonidine (Catapres) 0.1 mg PO Q4H PRN PRN Reason: Systolic BP > 160 Last Admin: 07/07/18 02:57 Dose: 0.1 mg Dextrose/Water (Dextrose 50%) 25 gm SLOW IVP PRN PRN PRN Reason: Hypoglycemia Famotidine (Pepcid) 20 mg PO QPM [facility] Last Admin: 07/06/18 19:54 Dose: 20 mg Fenofibrate (Tricor) 145 mg PO DAILY [facility] Last Admin: 07/07/18 08:43 Dose: 145 mg Furosemide (Lasix) 40 mg SLOW IVP 0600,1400 [facility] Glucagon (Glucagon) 1 mg IM PRN PRN PRN Reason: Hypoglycemia Guaifenesin (Robitussin Sf) 200 mg PO Q4H PRN PRN Reason: Cough Heparin Sodium (Porcine) (Heparin) 5,000 units SC BID [facility] Last Admin: 07/07/18 08:44 Dose: 5,000 units Hydralazine HCl (Apresoline) 10 mg SLOW IVP Q4H PRN PRN Reason: Systolic BP > 170 Ceftriaxone Sodium 1 gm/ (Sodium Chloride) 100 mls @ 200 mls/hr IVPB Q24HR [facility] Last Admin: 07/07/18 08:48 Dose: 100 mls Dextrose/Water (D5w) 1,000 mls @ 0 mls/hr IV .Q0M PRN PRN Reason: Hypoglycemia Levofloxacin 250 mg/ Device 50 mls @ 100 mls/hr IVPB 1999 [facility] Last Admin: 07/06/18 19:52 Dose: 50 mls Insulin Human Lispro (Humalog) 0 units SC .MODERATE SLIDING SC PRN PRN Reason: Moderate Correctional Scale Last Admin: 07/06/18 12:33 Dose: 4 unit Insulin Human Lispro (Humalog) 0 units SC .BEDTIME SLIDING SC PRN PRN Reason: Bedtime Correctional Scale Loratadine (Claritin) 10 mg PO DAILYPRN PRN PRN Reason: Sinus Symptoms Losartan Potassium (Cozaar) 50 mg PO DAILY [facility] Last Admin: 07/07/18 14:01 Dose: 50 mg Metolazone (Zaroxolyn) 2.5 mg PO Q48H [facility] Metolazone (Zaroxolyn) 2.5 mg PO ONE [facility] Metoprolol Succinate (Toprol Xl) 100 mg PO DAILY [facility] Last Admin: 07/07/18 08:44 Dose: 100 mg Nitroglycerin (Nitrostat) 0.4 mg SL Q5MIN PRN PRN Reason: Chest Pain Ondansetron HCl (Zofran) 4 mg IVP Q6H PRN PRN Reason: Nausea/Vomiting Last Admin: 07/07/18 14:01 Dose: 4 mg Senna (Senokot) 2 tab PO HSPRN PRN PRN Reason: Constipation Sodium Chloride (Flush - Normal Saline) 10 ml IVF Q12HR [facility] Last Admin: 07/07/18 08:44 Dose: 10 ml Sodium Chloride (Flush - Normal Saline) 10 ml IVF PRN PRN PRN Reason: Saline Flush Last Admin: 07/07/18 06:56 Dose: 10 ml Tramadol HCl (Ultram) 50 mg PO Q4H PRN PRN Reason: Moderate Pain (4-6)
[2018-07-07] MEDS ORDERED: Metolazone 2.5 MG TAB PO SCH (15:30)
[2018-07-07] MEDS: Famotidine 20 MG TAB PO SCH (20:57)
[2018-07-08] MEDS: Ondansetron HCl/PF 4 MG/2 ML Vial IVP PRN (01:08)
[2018-07-08] MEDS: Promethazine HCl 12.5 MG in Sodium Chloride 0.9% 50 ML IVPB PRN (04:00)
[2018-07-08 05:39] LABS: Anion Gap 10 mmol/L (10-20); BUN (Urea Nitrogen) 47 mg/dL (9.8-20.1); Calc. Creatinine Clearance 17 mL/min (70-130); Calcium 7.4 mg/dL (7.8-10.44); Carbon Dioxide 20 mmol/L (23-31); Chloride 111 mmol/L (98-107); Estimated GFR-MDRD 15; Glucose 124 mg/dL (83-110); Potassium 3.4 mmol/L (3.5-5.1); Sodium 138 mmol/L (136-145)
[2018-07-08] MEDS: Furosemide 40 MG/4 ML VIAL SLOW IVP SCH ×2 (05:45→14:25)
[2018-07-08] MEDS ORDERED: Potassium Chloride 20 MEQ TAB PO SCH (08:00)
[2018-07-08] MEDS: cefTRIAXone\\ROCEPHIN 1 GM in Sodium Chloride 0.9% 100 ML IVPB SCH (08:30)
[2018-07-08] MEDS: Heparin 5,000 UNITS/ML VIAL SC SCH ×2 (08:31→20:37)
[2018-07-08] MEDS: Fenofibrate Nanocrystallized 145 MG TAB PO SCH (08:31)
[2018-07-08] MEDS: Losartan 25 MG TAB PO SCH (08:32)
[2018-07-08] MEDS: Saccharomyces boulardii 250 MG CAP PO SCH (09:36)
[2018-07-08] MEDS: Folic Acid/Vit B Comp W-C PO SCH (09:36)
--- NOTE | 2018-07-08 11:07 | PRG ---
DATE OF SERVICE: 07/08/2018 SUBJECTIVE: This is a 73-year-old female being seen for acute kidney injury. The patient denies any nausea, vomiting or chest pain. Has leg swelling. PHYSICAL EXAMINATION: GENERAL: Patient is awake, alert. VITAL SIGNS: Afebrile, pulse 56, breathing at 16, blood pressure 141/64. HEAD/NECK: Normocephalic. Atraumatic. EYES: EOMI. No deformity. EARS: Clear. No ulcers. NOSE: Intact. No lesions. MOUTH: Clear. No discharge. THROAT: Clear. No exudate. LUNGS: Clear. No crackles. CARDIAC: S1, S2. No rub. ABDOMEN: Benign. BS+. GENITALIA/RECTUM: Ac absent. BACK/EXTREMITIES: Edema 0+ Ulcer- NEUROLOGICAL: Alert and motor intact. SKIN: Rash- Bruise- LYMPHATICS: Lower extremities have edema. LABORATORY DATA: Show creatinine 3.4, potassium is 3.4. ASSESSMENT AND PLAN: 1. Acute kidney injury with chronic kidney disease stage 4, stable. 2. Edema. Continue diuretics. 3. Hypokalemia, improved. 4. Medications based on glomerular filtration rate are appropriate. 5. Proteinuria workup is pending. No indication for dialysis at this time.
[2018-07-08] MEDS: cloNIDine 0.1 MG TAB PO PRN (11:38)
--- NOTE | 2018-07-08 12:00 | PDOC.PN ---
- Subjective Encounter Start Date: 07/08/18 Encounter Start Time: 11:58 Subjective: c/o nausea from potassium pills -: otherwise no new complaints. didn't eat much d/t nausea - Objective MAR Reviewed: Yes Vital Signs & Weight: Vital Signs (12 hours) Temp Pulse Resp BP Pulse Ox 07/08/18 11:30 97.5 F L 58 L 16 175/77 H 99 07/08/18 07:29 97.8 F 59 L 16 182/75 H 99 07/08/18 03:15 97.8 F 56 L 20 141/64 H 97 Weight Weight 138 lb 4.8 oz I&O: 07/07/18 07/08/18 07/09/18 06:59 06:59 06:59 Intake Total 960 1020 Output Total 850 975 Balance 110 45 Result Diagrams: 07/06/18 04:39 07/08/18 04:54 Additional Labs: Accuchecks 07/08/18 07/08/18 07/07/18 10:30 05:35 20:34 POC Glucose 118 H 117 H 142 H 07/07/18 16:38 POC Glucose 204 H Microbiology 07/05/18 14:47 Urine voided Urine Culture - Preliminary Gram Negative Alejandro Phys Exam - Physical Examination Constitutional: NAD pale.Looks chronically ill HEENT: PERRLA, moist MMs, sclera anicteric, oral pharynx no lesions Neck: no nodes, no JVD, supple, full ROM Respiratory: no wheezing, no rales, no rhonchi, clear to auscultation bilateral Cardiovascular: RRR, no significant murmur Gastrointestinal: soft, non-tender, no distention, positive bowel sounds Musculoskeletal: no edema, pulses present Neurological: non-focal, normal sensation, moves all 4 limbs Psychiatric: normal affect, A&O x 3 Skin: no rash Dx/Plan (1) Emphysematous cystitis Code(s): N30.80 - OTHER CYSTITIS WITHOUT HEMATURIA Status: Acute Comment: GNR on urine Cx (2) UTI (urinary tract infection) Status: Acute Qualifiers: Urinary tract infection type: acute cystitis Hematuria presence: without hematuria Qualified Code(s): N30.00 - Acute cystitis without hematuria (3) Hypokalemia Code(s): E87.6 - HYPOKALEMIA Status: Acute (4) Anasarca Code(s): R60.1 - GENERALIZED EDEMA Status: Acute (5) Nephrotic syndrome Code(s): N04.9 - NEPHROTIC SYNDROME WITH UNSPECIFIED MORPHOLOGIC CHANGES Status: Chronic Comment: Laurence Diabetic nephropathy.Bone Marrow pathology Negative for Myeloma (6) CKD (chronic kidney disease) stage 4, GFR 15-29 ml/min Code(s): N18.4 - CHRONIC KIDNEY DISEASE, STAGE 4 (SEVERE) Status: Chronic (7) General weakness Code(s): R53.1 - WEAKNESS Status: Chronic (8) Chronic anemia Code(s): D64.9 - ANEMIA, UNSPECIFIED Status: Chronic Comment: S/P BM Bx (9) HTN (hypertension) Code(s): I10 - ESSENTIAL (PRIMARY) HYPERTENSION Status: Chronic - Plan plan discussed w/ family, PT/OT, out of bed/ambulate, DVT proph w/SCDs Cont empiric ABx.GNR in urine. wait for final results -: 4 week of ABx on DC.urology OP -: DC [place] prior to discharge after voiding trial -: hemodynamically stable. meds adjusted yesterday -: Stop PO Kcl.will give IV prn. am labs * .cont diuresis. I/os * OT/PT. Review of Systems - Review of Systems Constitutional: weakness, malaise. negative: fever, chills, sweats, other Respiratory: negative: Cough, Dry, Shortness of Breath, Hemoptysis, SOB with Excertion, Pleuritic Pain, Sputum, Wheezing Cardiovascular: negative: chest pain, palpitations, orthopnea, paroxysmal nocturnal dyspnea, edema, light headedness, other Gastrointestinal: Nausea. negative: Vomiting, Abdominal Pain, Diarrhea, Constipation, Melena, Hematochezia, Other Genitourinary: negative: Dysuria, Frequency, Incontinence, Hematuria, Retention , Other Musculoskeletal: negative: Neck Pain, Shoulder Pain, Arm Pain, Back Pain, Hand Pain, Leg Pain, Foot Pain, Other Skin: negative: Rash, Lesions, Dick, Bruising, Other Neurological: negative: Weakness, Numbness, Incoordination, Change in Speech, Confusion, Seizures, Other - Medications/Allergies Allergies/Adverse Reactions: Allergies Allergy/AdvReac Type Severity Reaction Status Date / Time No Known Allergies Allergy Verified 07/04/18 14:45 Medications: Current Medications Acetaminophen (Tylenol) 650 mg PO Q4H PRN PRN Reason: Headache/Fever or Pain Al Hydroxide/Mg Hydroxide (Maalox) 15 ml PO Q4H PRN PRN Reason: Heartburn or Indigestion Benzonatate (Tessalon) 100 mg PO Q4H PRN PRN Reason: Cough Bisacodyl (Dulcolax) 10 mg PO DAILYPRN PRN PRN Reason: Constipation Calcium Carbonate (Tums) 1,000 mg PO Q4H PRN PRN Reason: Heartburn or Indigestion Clonidine (Catapres) 0.1 mg PO Q4H PRN PRN Reason: Systolic BP > 160 Last Admin: 07/08/18 11:38 Dose: 0.1 mg Dextrose/Water (Dextrose 50%) 25 gm SLOW IVP PRN PRN PRN Reason: Hypoglycemia Famotidine (Pepcid) 20 mg PO QPM [facility] Last Admin: 07/07/18 20:57 Dose: 20 mg Fenofibrate (Tricor) 145 mg PO DAILY [facility] Last Admin: 07/08/18 08:31 Dose: 145 mg Furosemide (Lasix) 40 mg SLOW IVP 0600,1400 [facility] Last Admin: 07/08/18 05:45 Dose: 40 mg Glucagon (Glucagon) 1 mg IM PRN PRN PRN Reason: Hypoglycemia Guaifenesin (Robitussin Sf) 200 mg PO Q4H PRN PRN Reason: Cough Heparin Sodium (Porcine) (Heparin) 5,000 units SC BID [facility] Last Admin: 07/08/18 08:31 Dose: 5,000 units Hydralazine HCl (Apresoline) 10 mg SLOW IVP Q4H PRN PRN Reason: Systolic BP > 170 Ceftriaxone Sodium 1 gm/ (Sodium Chloride) 100 mls @ 200 mls/hr IVPB Q24HR [facility] Last Admin: 07/08/18 08:30 Dose: 100 mls Dextrose/Water (D5w) 1,000 mls @ 0 mls/hr IV .Q0M PRN PRN Reason: Hypoglycemia Levofloxacin 250 mg/ Device 50 mls @ 100 mls/hr IVPB 2000 [facility] Last Admin: 07/07/18 20:56 Dose: 50 mls Promethazine HCl 12.5 mg/ (Sodium Chloride) 50.5 mls @ 202 mls/hr IVPB Q6H PRN PRN Reason: Nausea/Vomiting Last Admin: 07/08/18 04:00 Dose: 50.5 mls Insulin Human Lispro (Humalog) 0 units SC .MODERATE SLIDING SC PRN PRN Reason: Moderate Correctional Scale Last Admin: 07/06/18 12:33 Dose: 4 unit Insulin Human Lispro (Humalog) 0 units SC .BEDTIME SLIDING SC PRN PRN Reason: Bedtime Correctional Scale Loratadine (Claritin) 10 mg PO DAILYPRN PRN PRN Reason: Sinus Symptoms Losartan Potassium (Cozaar) 50 mg PO DAILY [facility] Last Admin: 07/08/18 08:32 Dose: 50 mg Metolazone (Zaroxolyn) 2.5 mg PO Q48H [facility] Metoprolol Succinate (Toprol Xl) 100 mg PO DAILY [facility] Last Admin: 07/08/18 08:32 Dose: 100 mg Nitroglycerin (Nitrostat) 0.4 mg SL Q5MIN PRN PRN Reason: Chest Pain Ondansetron HCl (Zofran) 4 mg IVP Q4H PRN PRN Reason: Nausea/Vomiting Last Admin: 07/08/18 01:08 Dose: 4 mg Saccharomyces Boulardii (Florastor) 250 mg PO DAILY [facility] Last Admin: 07/08/18 09:36 Dose: 250 mg Senna (Senokot) 2 tab PO HSPRN PRN PRN Reason: Constipation Sodium Chloride (Flush - Normal Saline) 10 ml IVF Q12HR [facility] Last Admin: 07/08/18 08:32 Dose: 10 ml Sodium Chloride (Flush - Normal Saline) 10 ml IVF PRN PRN PRN Reason: Saline Flush Last Admin: 07/07/18 06:56 Dose: 10 ml Tramadol HCl (Ultram) 50 mg PO Q4H PRN PRN Reason: Moderate Pain (4-6) Vitamin B Complex/Vit C/Folic Acid (Nephro-Alexandre Tablet) 1 tab PO DAILY [facility] Last Admin: 07/08/18 09:36 Dose: 1 tab
--- NOTE | 2018-07-08 16:26 | EKG ---
Test Reason : Blood Pressure : / mmHG Vent. Rate : 071 BPM Atrial Rate : 071 BPM P-R Int : 132 ms QRS Dur : 074 ms QT Int : 424 ms P-R-T Axes : 005 -03 220 degrees QTc Int : 460 ms Normal sinus rhythm Inferior infarct , age undetermined Anterior infarct , age undetermined Abnormal ECG Confirmed by MICHEAL BEATTY ([id number]), supervising editor news reel ANDREAS LEMUS ([id number]) on 07/08/2018 4:26:19 PM Referred By: Confirmed By:MICHEAL BEATTY
[2018-07-08] MEDS: Famotidine 20 MG TAB PO SCH (20:37)
[2018-07-09] MEDS: cloNIDine 0.1 MG TAB PO PRN ×2 (03:16→19:42)
[2018-07-09 05:37] LABS: Anion Gap 9 mmol/L (10-20); BUN (Urea Nitrogen) 47 mg/dL (9.8-20.1); Calc. Creatinine Clearance 16 mL/min (70-130); Calcium 7.5 mg/dL (7.8-10.44); Carbon Dioxide 25 mmol/L (23-31); Chloride 108 mmol/L (98-107); Estimated GFR-MDRD 14; Glucose 89 mg/dL (83-110); Potassium 3.6 mmol/L (3.5-5.1); Sodium 138 mmol/L (136-145)
[2018-07-09] MEDS: Furosemide 40 MG/4 ML VIAL SLOW IVP SCH ×2 (06:40→12:54)
[2018-07-09] MEDS: Saccharomyces boulardii 250 MG CAP PO SCH (09:51)
[2018-07-09] MEDS: Fenofibrate Nanocrystallized 145 MG TAB PO SCH (09:51)
[2018-07-09] MEDS: Folic Acid/Vit B Comp W-C PO SCH (09:51)
[2018-07-09] MEDS: Losartan 25 MG TAB PO SCH (09:52)
[2018-07-09] MEDS: Heparin 5,000 UNITS/ML VIAL SC SCH ×2 (09:52→20:24)
[2018-07-09] MEDS: cefTRIAXone\\ROCEPHIN 1 GM in Sodium Chloride 0.9% 100 ML IVPB SCH (09:53)
--- NOTE | 2018-07-09 11:11 | PRG ---
DATE OF SERVICE: 07/09/2018 SUBJECTIVE: This is a 73-year-old female, being seen for acute kidney injury. The patient denies an y nausea, vomiting, or chest pain. OBJECTIVE: See above. GENERAL: Patient is awake and alert. VITAL SIGNS: Afebrile, pulse 58 , breathing at 16, blood pressure is 132/61. GENERAL APPEARANCE AND MENTAL STATUS: Fair. HEAD/NECK: Normocephalic. Atraumatic. EYES: EOMI. No deformity. EARS: Clear. No ulcers. NOSE: Intact. No lesions. MOUTH: Clear. No discharge. THROAT: Clear. No exudate. LUNGS: Clear. No crackles. CARDIAC: S1, S2. No rub. ABDOMEN: Benign. BS+. GENITALIA/RECTUM: Ac absent. BACK/EXTREMITIES: Edema 0+, ulcer. NEUROLOGICAL: Alert and motor intact. SKIN: Rash - bruise. LYMPHATICS: Edema - ulcer. LABORATORY DATA: Show hemoglobin 9.8, creatinine 3.2. ASSESSMENT AND RECOMMENDATIONS: 1. Stage 5 chronic kidney disease. Continue diuresis. If the renal function does not improve, cons ider renal replacement therapy. 2. Hypertension, stable. 3. Anemia, stable. The patient might need workup as an outpatient, such as a renal biopsy.
--- NOTE | 2018-07-09 12:28 | PDOC.PN ---
- Subjective Encounter Start Date: 07/09/18 Encounter Start Time: 12:26 Subjective: feels much better today.good appetite.no nause -: able to get out of bed and move more - Objective MAR Reviewed: Yes Vital Signs & Weight: Vital Signs (12 hours) Temp Pulse Resp BP BP Pulse Ox 07/09/18 04:03 139/69 07/09/18 03:16 179/81 H 07/09/18 03:00 98.3 F 58 L 12 179/81 H 97 Weight Weight 136 lb 9.6 oz I&O: 07/08/18 07/09/18 07/10/18 06:59 06:59 06:59 Intake Total 1020 1300 Output Total 975 1450 Balance 45 -150 Result Diagrams: 07/06/18 04:39 07/09/18 04:39 Additional Labs: Accuchecks 07/09/18 07/09/18 07/08/18 11:04 05:51 20:07 POC Glucose 176 H 88 127 H 07/08/18 16:35 POC Glucose 132 H Microbiology 07/05/18 14:47 Urine voided Urine Culture - Preliminary Gram Negative Alejandro Phys Exam - Physical Examination Constitutional: NAD HEENT: PERRLA, moist MMs, sclera anicteric, oral pharynx no lesions Neck: no nodes, no JVD, supple, full ROM Respiratory: no wheezing, no rales, no rhonchi, clear to auscultation bilateral Cardiovascular: RRR, no significant murmur, no rub Gastrointestinal: soft, non-tender, no distention, positive bowel sounds Musculoskeletal: no edema, pulses present Neurological: non-focal, normal sensation, moves all 4 limbs Psychiatric: normal affect, A&O x 3 Skin: no rash Dx/Plan (1) Emphysematous cystitis Code(s): N30.80 - OTHER CYSTITIS WITHOUT HEMATURIA Status: Acute Comment: GNR on urine Cx (2) UTI (urinary tract infection) Status: Acute Qualifiers: Urinary tract infection type: acute cystitis Hematuria presence: without hematuria Qualified Code(s): N30.00 - Acute cystitis without hematuria (3) Hypokalemia Code(s): E87.6 - HYPOKALEMIA Status: Acute (4) Anasarca Code(s): R60.1 - GENERALIZED EDEMA Status: Acute (5) Nephrotic syndrome Code(s): N04.9 - NEPHROTIC SYNDROME WITH UNSPECIFIED MORPHOLOGIC CHANGES Status: Chronic Comment: Eduard Diabetic nephropathy.Bone Marrow pathology Negative for Myeloma (6) CKD (chronic kidney disease) stage 4, GFR 15-29 ml/min Code(s): N18.4 - CHRONIC KIDNEY DISEASE, STAGE 4 (SEVERE) Status: Chronic (7) General weakness Code(s): R53.1 - WEAKNESS Status: Chronic (8) Chronic anemia Code(s): D64.9 - ANEMIA, UNSPECIFIED Status: Chronic Comment: S/P BM Bx (9) HTN (hypertension) Code(s): I10 - ESSENTIAL (PRIMARY) HYPERTENSION Status: Chronic - Plan plan discussed w/ family, continue antibiotics, PT/OT, out of bed/ambulate, DVT proph w/SCDs clinically better.eduard home in next 24-48 hrs if urine Cx back -: Ac to be taken out by urology prior to DC -: BM Bx negative for lymphoma,myloma,leukemia -: renal Fx stable. Potassium WNL today.recheck -: BP better controlled.Cont meds as below.reduce lasix to Once daily * . Review of Systems - Review of Systems Constitutional: weakness, malaise. negative: fever, chills, sweats, other Respiratory: negative: Cough, Dry, Shortness of Breath, Hemoptysis, SOB with Excertion, Pleuritic Pain, Sputum, Wheezing Cardiovascular: negative: chest pain, palpitations, orthopnea, paroxysmal nocturnal dyspnea, edema, light headedness, other Gastrointestinal: negative: Nausea, Vomiting, Abdominal Pain, Diarrhea, Constipation, Melena, Hematochezia, Other Genitourinary: negative: Dysuria, Frequency, Incontinence, Hematuria, Retention , Other Musculoskeletal: negative: Neck Pain, Shoulder Pain, Arm Pain, Back Pain, Hand Pain, Leg Pain, Foot Pain, Other Skin: negative: Rash, Lesions, Dick, Bruising, Other Neurological: negative: Weakness, Numbness, Incoordination, Change in Speech, Confusion, Seizures, Other - Medications/Allergies Allergies/Adverse Reactions: Allergies Allergy/AdvReac Type Severity Reaction Status Date / Time No Known Allergies Allergy Verified 07/04/18 14:45 Medications: Current Medications Acetaminophen (Tylenol) 650 mg PO Q4H PRN PRN Reason: Headache/Fever or Pain Al Hydroxide/Mg Hydroxide (Maalox) 15 ml PO Q4H PRN PRN Reason: Heartburn or Indigestion Benzonatate (Tessalon) 100 mg PO Q4H PRN PRN Reason: Cough Bisacodyl (Dulcolax) 10 mg PO DAILYPRN PRN PRN Reason: Constipation Calcium Carbonate (Tums) 1,000 mg PO Q4H PRN PRN Reason: Heartburn or Indigestion Clonidine (Catapres) 0.1 mg PO Q4H PRN PRN Reason: Systolic BP > 160 Last Admin: 07/09/18 03:16 Dose: 0.1 mg Dextrose/Water (Dextrose 50%) 25 gm SLOW IVP PRN PRN PRN Reason: Hypoglycemia Famotidine (Pepcid) 20 mg PO QPM [facility] Last Admin: 07/08/18 20:37 Dose: 20 mg Fenofibrate (Tricor) 145 mg PO DAILY [facility] Last Admin: 07/09/18 09:51 Dose: 145 mg Furosemide (Lasix) 40 mg SLOW IVP DAILY [facility] Glucagon (Glucagon) 1 mg IM PRN PRN PRN Reason: Hypoglycemia Guaifenesin (Robitussin Sf) 200 mg PO Q4H PRN PRN Reason: Cough Heparin Sodium (Porcine) (Heparin) 5,000 units SC BID [facility] Last Admin: 07/09/18 09:52 Dose: 5,000 units Hydralazine HCl (Apresoline) 10 mg SLOW IVP Q4H PRN PRN Reason: Systolic BP > 170 Ceftriaxone Sodium 1 gm/ (Sodium Chloride) 100 mls @ 200 mls/hr IVPB Q24HR [facility] Last Admin: 07/09/18 09:53 Dose: 100 mls Dextrose/Water (D5w) 1,000 mls @ 0 mls/hr IV .Q0M PRN PRN Reason: Hypoglycemia Levofloxacin 250 mg/ Device 50 mls @ 100 mls/hr IVPB 2000 [facility] Last Admin: 07/08/18 20:37 Dose: 50 mls Promethazine HCl 12.5 mg/ (Sodium Chloride) 50.5 mls @ 202 mls/hr IVPB Q6H PRN PRN Reason: Nausea/Vomiting Last Admin: 07/08/18 04:00 Dose: 50.5 mls Insulin Human Lispro (Humalog) 0 units SC .MODERATE SLIDING SC PRN PRN Reason: Moderate Correctional Scale Last Admin: 07/06/18 12:33 Dose: 4 unit Insulin Human Lispro (Humalog) 0 units SC .BEDTIME SLIDING SC PRN PRN Reason: Bedtime Correctional Scale Loratadine (Claritin) 10 mg PO DAILYPRN PRN PRN Reason: Sinus Symptoms Losartan Potassium (Cozaar) 50 mg PO DAILY [facility] Last Admin: 07/09/18 09:52 Dose: 50 mg Metolazone (Zaroxolyn) 2.5 mg PO Q48H [facility] Metoprolol Succinate (Toprol Xl) 100 mg PO DAILY [facility] Last Admin: 07/09/18 09:51 Dose: 100 mg Nitroglycerin (Nitrostat) 0.4 mg SL Q5MIN PRN PRN Reason: Chest Pain Ondansetron HCl (Zofran) 4 mg IVP Q4H PRN PRN Reason: Nausea/Vomiting Last Admin: 07/08/18 01:08 Dose: 4 mg Saccharomyces Boulardii (Florastor) 250 mg PO DAILY [facility] Last Admin: 07/09/18 09:51 Dose: 250 mg Senna (Senokot) 2 tab PO HSPRN PRN PRN Reason: Constipation Sodium Chloride (Flush - Normal Saline) 10 ml IVF Q12HR [facility] Last Admin: 07/09/18 09:53 Dose: 10 ml Sodium Chloride (Flush - Normal Saline) 10 ml IVF PRN PRN PRN Reason: Saline Flush Last Admin: 07/07/18 06:56 Dose: 10 ml Tramadol HCl (Ultram) 50 mg PO Q4H PRN PRN Reason: Moderate Pain (4-6) Vitamin B Complex/Vit C/Folic Acid (Nephro-Alexandre Tablet) 1 tab PO DAILY [facility] Last Admin: 07/09/18 09:51 Dose: 1 tab
[2018-07-09] MEDS ORDERED: Metolazone 2.5 MG TAB PO SCH (14:30)
[2018-07-09] MEDS: Famotidine 20 MG TAB PO SCH (20:24)
[2018-07-10] MEDS: cloNIDine 0.1 MG TAB PO PRN ×3 (03:56→17:00)
[2018-07-10 05:29] LABS: Anion Gap 9 mmol/L (10-20); BUN (Urea Nitrogen) 49 mg/dL (9.8-20.1); Calc. Creatinine Clearance 14 mL/min (70-130); Calcium 7.3 mg/dL (7.8-10.44); Carbon Dioxide 24 mmol/L (23-31); Chloride 107 mmol/L (98-107); Estimated GFR-MDRD 13; Glucose 173 mg/dL (83-110); Potassium 3.6 mmol/L (3.5-5.1); Sodium 136 mmol/L (136-145)
[2018-07-10 07:06] LABS: #Eosinphils 0.1 thou/uL (0.0-0.7); #Lymphocytes 1.2 thou/uL (1.20-3.40); #Monocytes 0.3 thou/uL (0.11-0.59); #Neutrophils 1.3 thou/uL (1.40-6.50); %Basophils 1.4 % (0.0-1.0); %Eosinophils 2.3 % (0.0-10.0); %Lymphocytes 41.1 % (21.0-51.0); %Monocytes 10.3 % (0.0-10.0); Hemoglobin 10.1 g/dL (12.0-16.0); Mean Corpuscular HGB CONC 30.5 g/dL (32.0-36.0); Mean Corpuscular Hemoglobin 28.8 pg (27.0-31.0); Mean Corpuscular Volume 94.6 fL (78.0-98.0); Mean Platelet Volume 11.5 fL (7.4-10.4); PLT Morphology Comment Appears Decreased; Platelet Count 114 thou/uL (130-400); Red Blood Cell (RBC) Count 3.52 mill/uL (4.20-5.40); White Blood Cell (WBC) Count 2.8 thou/uL (4.8-10.8)
[2018-07-10] MEDS: cefTRIAXone\\ROCEPHIN 1 GM in Sodium Chloride 0.9% 100 ML IVPB SCH (08:34)
[2018-07-10] MEDS: Saccharomyces boulardii 250 MG CAP PO SCH (08:34)
[2018-07-10] MEDS: Folic Acid/Vit B Comp W-C PO SCH (08:34)
[2018-07-10] MEDS: Losartan 25 MG TAB PO SCH (08:34)
[2018-07-10] MEDS: Furosemide 40 MG/4 ML VIAL SLOW IVP SCH (08:35)
[2018-07-10] MEDS: Heparin 5,000 UNITS/ML VIAL SC SCH ×2 (08:35→20:36)
[2018-07-10] MEDS: Fenofibrate Nanocrystallized 145 MG TAB PO SCH (08:35)
--- NOTE | 2018-07-10 12:24 | PRG ---
DATE OF SERVICE: 07/10/2018 SUBJECTIVE: The patient has done well over the weekend, has gotten up with physical therapy, but [facility] still feels relatively weak, but has no specific complaints. OBJECTIVE: She has remained afebrile with blood pressure labile all the way up to 206/81. It was la st checked when I visited her and she states that this does sometimes happen, otherwise she has been satting fine on room air with a heart rate in the 50s. She has had 1500 over the last 24 hours of ou tput which is draining yellow clear urine. LABORATORY DATA: CBC shows a stable, if not improved, H&H 10.1 and 33.3, creatinine has continued to rise at 3.49. The urine culture came back at 50-75 gram negative angela and they were unable to give sensitivities for susceptibilities, but after speaking with the lab, they were able to send it to lab [facility] for further testing and hope in 3 days to have more definitive answer. ASSESSMENT AND PLAN: We have a 73-year-old female admitted with emphysematous pyelonephritis and mul tiple other comorbidities who will likely be ready for discharge if her blood pressure were under con trol based on her mobility and safety from a home standpoint. I am not sure whether she is going [facility] or whether she is being set up for discharge to a facility, but either way on the day of discharge which if that is tomorrow, then the catheter can come out first thing in the morning and just ensure that she voids and has a bladder scan of less than 200 mL before being discharged and then she will f ollow up in the office with me as an outpatient. I put a prescription for Omnicef for 4 weeks in the chart and hopefully this will cover the appropriate organism.
--- NOTE | 2018-07-10 12:52 | PDOC.PN ---
- Subjective Encounter Start Date: 07/10/18 Encounter Start Time: 12:50 Subjective: feels weka and poor appetite - Objective MAR Reviewed: Yes Vital Signs & Weight: Vital Signs (12 hours) Temp Pulse Resp BP BP BP Pulse Ox 07/10/18 11:13 167/59 H 07/10/18 11:00 59 L 16 167/71 H 07/10/18 07:37 98 F 58 L 16 206/81 H 97 07/10/18 05:30 58 L 141/65 H 07/10/18 03:56 60 172/72 H 07/10/18 03:04 98.1 F 59 L 16 180/72 H 98 Weight Weight 136 lb 1.6 oz I&O: 07/09/18 07/10/18 07/11/18 06:59 06:59 06:59 Intake Total 1300 820 Output Total 1450 1500 Balance -150 -680 Result Diagrams: 07/10/18 04:51 07/10/18 04:51 Additional Labs: Accuchecks 07/10/18 07/10/18 07/09/18 10:55 05:27 20:16 POC Glucose 175 H 157 H 201 H 07/09/18 17:06 POC Glucose 177 H Microbiology 07/05/18 14:47 Urine voided Urine Culture - Preliminary Gram Negative Alejandro Laboratory Tests 07/05/18 07/05/18 07/06/18 15:37 22:03 04:39 Creatinine 2.96 H 2.87 H 2.92 H 07/07/18 07/07/18 07/08/18 04:28 11:13 04:54 Creatinine 2.93 H 3.12 H 3.04 H 07/09/18 07/10/18 04:39 04:51 Creatinine 3.23 H 3.49 H Phys Exam - Physical Examination Constitutional: NAD pale HEENT: PERRLA, moist MMs, sclera anicteric, oral pharynx no lesions Neck: no nodes, no JVD, supple, full ROM Respiratory: no wheezing, no rales, no rhonchi, clear to auscultation bilateral Cardiovascular: RRR, no significant murmur, no rub Gastrointestinal: soft, non-tender, no distention, positive bowel sounds Musculoskeletal: no edema, pulses present Neurological: non-focal, normal sensation, moves all 4 limbs Psychiatric: normal affect, A&O x 3 Skin: no rash Dx/Plan (1) Emphysematous cystitis Code(s): N30.80 - OTHER CYSTITIS WITHOUT HEMATURIA Status: Acute Comment: GNR on urine Cx (2) UTI (urinary tract infection) Status: Acute Qualifiers: Urinary tract infection type: acute cystitis Hematuria presence: without hematuria Qualified Code(s): N30.00 - Acute cystitis without hematuria (3) Hypokalemia Code(s): E87.6 - HYPOKALEMIA Status: Acute (4) Anasarca Code(s): R60.1 - GENERALIZED EDEMA Status: Acute (5) Nephrotic syndrome Code(s): N04.9 - NEPHROTIC SYNDROME WITH UNSPECIFIED MORPHOLOGIC CHANGES Status: Chronic Comment: Eduard Diabetic nephropathy.Bone Marrow pathology Negative for Myeloma (6) CKD (chronic kidney disease) stage 4, GFR 15-29 ml/min Code(s): N18.4 - CHRONIC KIDNEY DISEASE, STAGE 4 (SEVERE) Status: Chronic (7) General weakness Code(s): R53.1 - WEAKNESS Status: Chronic (8) Chronic anemia Code(s): D64.9 - ANEMIA, UNSPECIFIED Status: Chronic Comment: S/P BM Bx (9) HTN (hypertension) Code(s): I10 - ESSENTIAL (PRIMARY) HYPERTENSION Status: Chronic - Plan plan discussed w/ family, monterroso catheter, continue antibiotics, PT/OT, out of bed/ambulate, DVT proph w/heparin, DVT proph w/SCDs BP uncontrolled. losartan stopped by nephrology. -: discussed w Dr. Andre.will add procardia and titrate -: urine Cx w GNR.not final.cont empiric ABx. formerly [facility] urology input -: eduard CUMMINGS home tomorrow if BP better. -: f/u Nephrology in OP setting for possible renal Biopsy * . Review of Systems - Review of Systems Constitutional: negative: fever, chills, sweats, weakness, malaise, other Eyes: negative: Pain, Vision Change, Conjunctivae Inflammation, Eyelid Inflammation, Redness, Other ENT: negative: Ear Pain, Ear Discharge, Nose Pain, Nose Discharge, Nose Congestion, Mouth Pain, Mouth Swelling, Throat Pain, Throat Swelling, Other Respiratory: negative: Cough, Dry, Shortness of Breath, Hemoptysis, SOB with Excertion, Pleuritic Pain, Sputum, Wheezing Cardiovascular: negative: chest pain, palpitations, orthopnea, paroxysmal nocturnal dyspnea, edema, light headedness, other Gastrointestinal: negative: Nausea, Vomiting, Abdominal Pain, Diarrhea, Constipation, Melena, Hematochezia, Other Genitourinary: negative: Dysuria, Frequency, Incontinence, Hematuria, Retention , Other Musculoskeletal: negative: Neck Pain, Shoulder Pain, Arm Pain, Back Pain, Hand Pain, Leg Pain, Foot Pain, Other Neurological: negative: Weakness, Numbness, Incoordination, Change in Speech, Confusion, Seizures, Other - Medications/Allergies Allergies/Adverse Reactions: Allergies Allergy/AdvReac Type Severity Reaction Status Date / Time No Known Allergies Allergy Verified 07/04/18 14:45 Medications: Current Medications Acetaminophen (Tylenol) 650 mg PO Q4H PRN PRN Reason: Headache/Fever or Pain Al Hydroxide/Mg Hydroxide (Maalox) 15 ml PO Q4H PRN PRN Reason: Heartburn or Indigestion Benzonatate (Tessalon) 100 mg PO Q4H PRN PRN Reason: Cough Bisacodyl (Dulcolax) 10 mg PO DAILYPRN PRN PRN Reason: Constipation Calcium Carbonate (Tums) 1,000 mg PO Q4H PRN PRN Reason: Heartburn or Indigestion Clonidine (Catapres) 0.1 mg PO Q4H PRN PRN Reason: Systolic BP > 160 Last Admin: 07/10/18 11:13 Dose: 0.1 mg Dextrose/Water (Dextrose 50%) 25 gm SLOW IVP PRN PRN PRN Reason: Hypoglycemia Famotidine (Pepcid) 20 mg PO QPM [facility] Last Admin: 07/09/18 20:24 Dose: 20 mg Fenofibrate (Tricor) 145 mg PO DAILY [facility] Last Admin: 07/10/18 08:35 Dose: 145 mg Furosemide (Lasix) 40 mg SLOW IVP DAILY [facility] Last Admin: 07/10/18 08:35 Dose: 40 mg Glucagon (Glucagon) 1 mg IM PRN PRN PRN Reason: Hypoglycemia Guaifenesin (Robitussin Sf) 200 mg PO Q4H PRN PRN Reason: Cough Heparin Sodium (Porcine) (Heparin) 5,000 units SC BID [facility] Last Admin: 10/01/18 08:35 Dose: 5,000 units Hydralazine HCl (Apresoline) 10 mg SLOW IVP Q4H PRN PRN Reason: Systolic BP > 170 Ceftriaxone Sodium 1 gm/ (Sodium Chloride) 100 mls @ 200 mls/hr IVPB Q24HR [facility] Last Admin: 07/10/18 08:34 Dose: 100 mls Dextrose/Water (D5w) 1,000 mls @ 0 mls/hr IV .Q0M PRN PRN Reason: Hypoglycemia Levofloxacin 250 mg/ Device 50 mls @ 100 mls/hr IVPB 1999 [facility] Last Admin: 07/09/18 19:45 Dose: 50 mls Promethazine HCl 12.5 mg/ (Sodium Chloride) 50.5 mls @ 202 mls/hr IVPB Q6H PRN PRN Reason: Nausea/Vomiting Last Admin: 07/08/18 04:00 Dose: 50.5 mls Insulin Human Lispro (Humalog) 0 units SC .MODERATE SLIDING SC PRN PRN Reason: Moderate Correctional Scale Last Admin: 07/06/18 12:33 Dose: 4 unit Insulin Human Lispro (Humalog) 0 units SC .BEDTIME SLIDING SC PRN PRN Reason: Bedtime Correctional Scale Loratadine (Claritin) 10 mg PO DAILYPRN PRN PRN Reason: Sinus Symptoms Metolazone (Zaroxolyn) 2.5 mg PO Q48H [facility] Last Admin: 07/09/18 14:53 Dose: 2.5 mg Metoprolol Succinate (Toprol Xl) 100 mg PO DAILY [facility] Last Admin: 07/10/18 08:35 Dose: 100 mg Nifedipine (Procardia Xl) 30 mg PO DAILY [facility] Nifedipine (Procardia Xl) 30 mg PO NOW [facility] Stop: 07/10/18 15:00 Nitroglycerin (Nitrostat) 0.4 mg SL Q5MIN PRN PRN Reason: Chest Pain Ondansetron HCl (Zofran) 4 mg IVP Q4H PRN PRN Reason: Nausea/Vomiting Last Admin: 07/08/18 01:08 Dose: 4 mg Saccharomyces Boulardii (Florastor) 250 mg PO DAILY [facility] Last Admin: 07/10/18 08:34 Dose: 250 mg Senna (Senokot) 2 tab PO HSPRN PRN PRN Reason: Constipation Sodium Chloride (Flush - Normal Saline) 10 ml IVF Q12HR [facility] Last Admin: 07/10/18 08:35 Dose: 10 ml Sodium Chloride (Flush - Normal Saline) 10 ml IVF PRN PRN PRN Reason: Saline Flush Last Admin: 07/09/18 19:45 Dose: 10 ml Tramadol HCl (Ultram) 50 mg PO Q4H PRN PRN Reason: Moderate Pain (4-6) Vitamin B Complex/Vit C/Folic Acid (Nephro-Alexandre Tablet) 1 tab PO DAILY [facility] Last Admin: 07/10/18 08:34 Dose: 1 tab
[2018-07-10] MEDS ORDERED: NIFEdipine XL 30 MG TAB PO SCH (13:00)
[2018-07-10] MEDS: HumaLOG 300 UNITS/3 ML VIAL SC PRN (17:00)
[2018-07-10] MEDS: Ondansetron HCl/PF 4 MG/2 ML Vial IVP PRN (18:43)
--- NOTE | 2018-07-10 20:26 | PRG ---
DATE OF SERVICE: 07/10/2018 SUBJECTIVE: Patient was seen and examined at bedside and overnight events noted. Patient denies any shortness of breath or chest pain or palpitation. No history of nausea or vomiting or diarrhea or f ever or chills or cramps. OBJECTIVE: GENERAL: This is a well-built female in no apparent distress. VITAL SIGNS: Temperature 98.5, pulse , respiratory rate , blood pressure 177/74. HEENT: Atraumatic, normocephalic. Oral mucosa is moist NECK: Supple CARDIOVASCULAR: S1, S2 heard. Rate and rhythm regular. RESPIRATORY: Clear to auscultation. GASTROINTESTINAL: Abdomen is soft. MUSCULOSKELETAL: No tenderness, no edema. DERMATOLOGIC: No skin rash. NEUROLOGIC: Alert, awake, and oriented x3. No focal neurologic deficits. Moving all the extremitie s. PSYCHIATRIC: Mood and affect normal. LABORATORY DATA: Hemoglobin 10.1, potassium is 3.6, BUN is 49, creatinine is 3.4. ASSESSMENT AND PLAN: 1. Acute kidney injury on chronic kidney disease, stage 5. We will stop losartan and reduce the dos e of Lasix. Edema seems to be better. 2. Hypertension. We will stop losartan and add nifedipine and change metoprolol to Coreg for better blood pressure control. 3. Edema, controlled. 4. Anemia. Monitor. 5. Proteinuria. 6. Pyuria. 7. Anemia, most likely from chronic disease. Plan is to make medication changes and monitor renal function. Avoid nephrotoxins. We will follow.
[2018-07-10] MEDS: Famotidine 20 MG TAB PO SCH (20:36)
[2018-07-10] MEDS: traMADol HCl 50 MG TAB PO PRN (22:37)
[2018-07-11] MEDS: Ondansetron HCl/PF 4 MG/2 ML Vial IVP PRN ×2 (01:43→07:53)
[2018-07-11 05:39] LABS: Anion Gap 11 mmol/L (10-20); BUN (Urea Nitrogen) 51 mg/dL (9.8-20.1); Calc. Creatinine Clearance 14 mL/min (70-130); Calcium 7.5 mg/dL (7.8-10.44); Carbon Dioxide 23 mmol/L (23-31); Chloride 106 mmol/L (98-107); Estimated GFR-MDRD 13; Glucose 87 mg/dL (83-110); Potassium 3.8 mmol/L (3.5-5.1); Sodium 136 mmol/L (136-145)
[2018-07-11] MEDS: cefTRIAXone\\ROCEPHIN 1 GM in Sodium Chloride 0.9% 100 ML IVPB SCH (08:50)
[2018-07-11] MEDS: Heparin 5,000 UNITS/ML VIAL SC SCH ×2 (08:51→19:27)
[2018-07-11] MEDS: Fenofibrate Nanocrystallized 145 MG TAB PO SCH (08:54)
[2018-07-11] MEDS: Bumetanide 1 MG TAB PO SCH (08:54)
[2018-07-11] MEDS: Saccharomyces boulardii 250 MG CAP PO SCH (08:54)
[2018-07-11] MEDS: Folic Acid/Vit B Comp W-C PO SCH ×2 (08:54→09:00)
[2018-07-11] MEDS: NIFEdipine XL 30 MG TAB PO SCH (08:55)
[2018-07-11] MEDS: Promethazine HCl 12.5 MG in Sodium Chloride 0.9% 50 ML IVPB PRN (10:50)
--- NOTE | 2018-07-11 11:29 | RAD ---
ONE VIEW ABDOMEN: History: Persistent vomiting. Comparison: None. FINDINGS: There is evidence of enthesopathic change. Vascular calcifications are noted. Bowel gas pattern is no nspecific. Surgical clips are noted in the right hemiabdomen. No evidence of pneumoperitoneum in the supine projection. IMPRESSION: Nonspecific bowel gas pattern. POS: H
--- NOTE | 2018-07-11 13:38 | PDOC.PN ---
- Subjective Encounter Start Date: 07/11/18 Encounter Start Time: 13:36 Subjective: c/o nausea and vomiting all night and this morning - Objective MAR Reviewed: Yes Vital Signs & Weight: Vital Signs (12 hours) Temp Pulse Resp BP BP BP BP 07/11/18 12:00 97.7 F 58 L 16 127/57 L 07/11/18 08:55 59 L 147/67 H 07/11/18 08:00 97.9 F 61 16 147/67 H 07/11/18 03:09 98.6 F 59 L 12 122/56 L Pulse Ox 07/11/18 12:00 96 07/11/18 08:55 07/11/18 08:00 97 07/11/18 03:09 97 Weight Weight 140 lb 3.2 oz I&O: 07/10/18 07/11/18 07/12/18 06:59 06:59 06:59 Intake Total 820 700 Output Total 1500 1300 Balance -680 -600 Result Diagrams: 07/10/18 04:51 07/11/18 04:51 Additional Labs: Accuchecks 07/11/18 07/11/18 07/10/18 11:21 05:28 21:11 POC Glucose 82 96 77 07/10/18 16:44 POC Glucose 294 H Radiology Reviewed by me: Yes (KUB-nonspecific. No obstruction) Phys Exam - Physical Examination Constitutional: NAD HEENT: PERRLA, moist MMs, sclera anicteric, oral pharynx no lesions Neck: no nodes, no JVD, supple, full ROM Respiratory: no wheezing, no rales, no rhonchi, clear to auscultation bilateral Cardiovascular: RRR, no significant murmur, no rub Gastrointestinal: soft, non-tender, no distention, positive bowel sounds Musculoskeletal: no edema, pulses present Neurological: non-focal, normal sensation, moves all 4 limbs Psychiatric: normal affect, A&O x 3 Dx/Plan (1) Emphysematous cystitis Code(s): N30.80 - OTHER CYSTITIS WITHOUT HEMATURIA Status: Acute Comment: GNR on urine Cx.Final pending (2) UTI (urinary tract infection) Status: Acute Qualifiers: Urinary tract infection type: acute cystitis Hematuria presence: without hematuria Qualified Code(s): N30.00 - Acute cystitis without hematuria (3) Hypokalemia Code(s): E87.6 - HYPOKALEMIA Status: Acute (4) Anasarca Code(s): R60.1 - GENERALIZED EDEMA Status: Acute (5) Nephrotic syndrome Code(s): N04.9 - NEPHROTIC SYNDROME WITH UNSPECIFIED MORPHOLOGIC CHANGES Status: Chronic Comment: Laurence Diabetic nephropathy.Bone Marrow pathology Negative for Myeloma (6) CKD (chronic kidney disease) stage 4, GFR 15-29 ml/min Code(s): N18.4 - CHRONIC KIDNEY DISEASE, STAGE 4 (SEVERE) Status: Chronic (7) General weakness Code(s): R53.1 - WEAKNESS Status: Chronic (8) Chronic anemia Code(s): D64.9 - ANEMIA, UNSPECIFIED Status: Chronic Comment: S/P BM Bx (9) HTN (hypertension) Code(s): I10 - ESSENTIAL (PRIMARY) HYPERTENSION Status: Chronic - Plan plan discussed w/ family, DVT proph w/SCDs no etiology for Nausea.No obstruction on KUB.suspect d/t progressive CKD -: provide supportive care.reassurance provided -: lasix chnaged to Bumex.will stop zaroxolyn and monitor for fluid overload -: cont empiric ABx, -: DC home when final Cx reported and pt feels better. * .Need srenal Bx at S7W post DC * BM Bx negative for myleoma * am ;labs Review of Systems - Review of Systems Constitutional: weakness, malaise. negative: fever, chills, sweats, other ENT: negative: Ear Pain, Ear Discharge, Nose Pain, Nose Discharge, Nose Congestion, Mouth Pain, Mouth Swelling, Throat Pain, Throat Swelling, Other Respiratory: negative: Cough, Dry, Shortness of Breath, Hemoptysis, SOB with Excertion, Pleuritic Pain, Sputum, Wheezing Cardiovascular: negative: chest pain, palpitations, orthopnea, paroxysmal nocturnal dyspnea, edema, light headedness, other Gastrointestinal: Nausea, Vomiting. negative: Abdominal Pain, Diarrhea, Constipation, Melena, Hematochezia, Other Genitourinary: negative: Dysuria, Frequency, Incontinence, Hematuria, Retention , Other Musculoskeletal: negative: Neck Pain, Shoulder Pain, Arm Pain, Back Pain, Hand Pain, Leg Pain, Foot Pain, Other Neurological: negative: Weakness, Numbness, Incoordination, Change in Speech, Confusion, Seizures, Other - Medications/Allergies Allergies/Adverse Reactions: Allergies Allergy/AdvReac Type Severity Reaction Status Date / Time No Known Allergies Allergy Verified 07/04/18 14:45 Medications: Current Medications Acetaminophen (Tylenol) 650 mg PO Q4H PRN PRN Reason: Headache/Fever or Pain Al Hydroxide/Mg Hydroxide (Maalox) 15 ml PO Q4H PRN PRN Reason: Heartburn or Indigestion Benzonatate (Tessalon) 100 mg PO Q4H PRN PRN Reason: Cough Bisacodyl (Dulcolax) 10 mg PO DAILYPRN PRN PRN Reason: Constipation Bumetanide (Bumex) 1 mg PO DAILY [facility] Last Admin: 07/11/18 08:54 Dose: 1 mg Calcium Carbonate (Tums) 1,000 mg PO Q4H PRN PRN Reason: Heartburn or Indigestion Clonidine (Catapres) 0.1 mg PO Q4H PRN PRN Reason: Systolic BP > 160 Last Admin: 07/10/18 17:00 Dose: 0.1 mg Dextrose/Water (Dextrose 50%) 25 gm SLOW IVP PRN PRN PRN Reason: Hypoglycemia Famotidine (Pepcid) 20 mg PO QPM [facility] Last Admin: 07/10/18 20:36 Dose: 20 mg Fenofibrate (Tricor) 145 mg PO DAILY [facility] Last Admin: 07/11/18 08:54 Dose: 145 mg Glucagon (Glucagon) 1 mg IM PRN PRN PRN Reason: Hypoglycemia Guaifenesin (Robitussin Sf) 200 mg PO Q4H PRN PRN Reason: Cough Last Admin: 07/11/18 01:46 Dose: 200 mg Heparin Sodium (Porcine) (Heparin) 5,000 units SC BID [facility] Last Admin: 07/11/18 08:51 Dose: 5,000 units Hydralazine HCl (Apresoline) 10 mg SLOW IVP Q4H PRN PRN Reason: Systolic BP > 170 Ceftriaxone Sodium 1 gm/ (Sodium Chloride) 100 mls @ 200 mls/hr IVPB Q24HR [facility] Last Admin: 07/11/18 08:50 Dose: 100 mls Dextrose/Water (D5w) 1,000 mls @ 0 mls/hr IV .Q0M PRN PRN Reason: Hypoglycemia Levofloxacin 250 mg/ Device 50 mls @ 100 mls/hr IVPB 2000 [facility] Last Admin: 07/10/18 20:37 Dose: 50 mls Promethazine HCl 12.5 mg/ (Sodium Chloride) 50.5 mls @ 202 mls/hr IVPB Q6H PRN PRN Reason: Nausea/Vomiting Last Admin: 07/11/18 10:50 Dose: 50.5 mls Insulin Human Lispro (Humalog) 0 units SC .MODERATE SLIDING SC PRN PRN Reason: Moderate Correctional Scale Last Admin: 07/10/18 17:00 Dose: 6 unit Insulin Human Lispro (Humalog) 0 units SC .BEDTIME SLIDING SC PRN PRN Reason: Bedtime Correctional Scale Loratadine (Claritin) 10 mg PO DAILYPRN PRN PRN Reason: Sinus Symptoms Metolazone (Zaroxolyn) 2.5 mg PO Q48H [facility] Last Admin: 07/09/18 14:53 Dose: 2.5 mg Metoprolol Succinate (Toprol Xl) 100 mg PO DAILY [facility] Last Admin: 07/11/18 08:54 Dose: 100 mg Nifedipine (Procardia Xl) 30 mg PO DAILY [facility] Last Admin: 07/11/18 08:55 Dose: 30 mg Nitroglycerin (Nitrostat) 0.4 mg SL Q5MIN PRN PRN Reason: Chest Pain Ondansetron HCl (Zofran) 4 mg IVP Q4H PRN PRN Reason: Nausea/Vomiting Last Admin: 07/11/18 07:53 Dose: 4 mg Saccharomyces Boulardii (Florastor) 250 mg PO DAILY [facility] Last Admin: 07/11/18 08:54 Dose: 250 mg Senna (Senokot) 2 tab PO HSPRN PRN PRN Reason: Constipation Sodium Chloride (Flush - Normal Saline) 10 ml IVF Q12HR [facility] Last Admin: 07/11/18 08:56 Dose: 10 ml Sodium Chloride (Flush - Normal Saline) 10 ml IVF PRN PRN PRN Reason: Saline Flush Last Admin: 07/09/18 19:45 Dose: 10 ml Tramadol HCl (Ultram) 50 mg PO Q4H PRN PRN Reason: Moderate Pain (4-6) Last Admin: 07/10/18 22:37 Dose: 50 mg Vitamin B Complex/Vit C/Folic Acid (Nephro-Alexandre Tablet) 1 tab PO DAILY [facility] Last Admin: 07/11/18 09:00 Dose: Not Given
[2018-07-11 16:16] LABS: Ref Lab Test Ordered AEROBIC ID/SENS; Reference Lab Name LABCORP
--- NOTE | 2018-07-11 18:54 | PRG ---
DATE OF SERVICE: 07/11/2018 SUBJECTIVE: Patient was seen and examined at bedside and overnight events noted. Patient denies any shortness of breath or chest pain or palpitation. No history of nausea or vomitin g or diarrhea or fever or chills or cramps. OBJECTIVE: GENERAL: This is a well-built female, in no apparent distress. VITAL SIGNS: Temperature 97.8, pulse 64, respiratory rate 16, blood pressure 127/57. HEENT: Atraumatic, normocephalic. Oral mucosa is moist. NECK: Supple. CARDIOVASCULAR: S1 and S2 heard. Rate and rhythm regular. RESPIRATORY: Clear to auscultation. GASTROINTESTINAL: Abdomen is soft. MUSCULOSKELETAL: No tenderness. No edema. DERMATOLOGIC: No skin rash. NEUROLOGIC: Alert and awake and oriented x3. No focal neurologic deficits. Moving all the extremit ies. PSYCHIATRIC: Mood and affect normal. LABORATORY DATA: Potassium is 3.8, BUN 51, creatinine 3.5. ASSESSMENT AND PLAN: 1. Acute kidney injury on chronic kidney disease stage 5. The patient complains of nausea this morn ing. We will monitor. No acute indication for dialysis. We will follow. 2. Edema, controlled. 3. Hypertension, stable. 4. Anemia. 5. Pyuria . 6. We will monitor. No acute indication for dialysis. We will continue to monitor.
[2018-07-11] MEDS: Famotidine 20 MG TAB PO SCH (19:27)
[2018-07-12 05:32] LABS: Anion Gap 13 mmol/L (10-20); BUN (Urea Nitrogen) 57 mg/dL (9.8-20.1); Calc. Creatinine Clearance 13 mL/min (70-130); Calcium 7.4 mg/dL (7.8-10.44); Carbon Dioxide 23 mmol/L (23-31); Chloride 106 mmol/L (98-107); Estimated GFR-MDRD 12; Glucose 73 mg/dL (83-110); Potassium 3.7 mmol/L (3.5-5.1); Sodium 138 mmol/L (136-145)
[2018-07-12] MEDS: Fenofibrate Nanocrystallized 145 MG TAB PO SCH (09:34)
[2018-07-12] MEDS: Heparin 5,000 UNITS/ML VIAL SC SCH ×2 (09:34→21:46)
[2018-07-12] MEDS: cefTRIAXone\\ROCEPHIN 1 GM in Sodium Chloride 0.9% 100 ML IVPB SCH (09:34)
[2018-07-12] MEDS: Folic Acid/Vit B Comp W-C PO SCH (09:34)
[2018-07-12] MEDS: Bumetanide 1 MG TAB PO SCH (09:34)
[2018-07-12] MEDS: NIFEdipine XL 30 MG TAB PO SCH (09:35)
[2018-07-12] MEDS: Saccharomyces boulardii 250 MG CAP PO SCH (09:35)
--- NOTE | 2018-07-12 09:53 | PRG ---
DATE OF SERVICE: 07/12/2018 The patient has done well over the last 24 hours. She has no complaints and she is feeling a little better. We discussed her rising creatinine and how at some point dialysis may be warranted, so she should consider whether that is something she would desire. I reviewed with them how ultimately the decision was between Nephrology and her regarding this. I also reviewed how the indwelling catheter helps at this time to ensure that she is adequately draining and the kidneys have no trouble related to this. PHYSICAL EXAMINATION: GENERAL: On exam she is sitting up eating breakfast and appears very comfortable. VITAL SIGNS: She has been stable and afebrile. GENITOURINARY: She has put out 1200 over the last 24 hours. The Ac catheter is draining yellow urine. LABORATORY DATA: Her creatinine continues to rise and is 3.79 today. The urine culture is still pending and we are hoping to hear from [facility] with the second culture result within the next 24 hours. MEDICATIONS: She remains on ceftriaxone at this point and Levaquin. ASSESSMENT: A 73-year-old female with rising creatinine related to renal insufficiency without concern for obstruction at this time as well as emphysematous cystitis being treated with IV antibiotics, awaiting final culture for sensitivities. Her blood pressure is now improved as previously listed. When she is safe for discharge, the Ac catheter can be removed and make sure she adequately empties with a residual of less than 200 and goes home with a total of 4 weeks of antibiotics. [facility]
--- NOTE | 2018-07-12 13:17 | PQF ---
CLINICAL DOCUMENTATION IMPROVEMENT CLARIFICATION FORM: ICD-10 Updated PLEASE DO AN ADDENDUM TO THE PROGRESS NOTE WITH ANY DOCUMENTATION UPDATES OR ADDITIONS AND CARRY THROUGH TO DC SUMMARY. THANK YOU. DATE: 07/12/18 ATTN: Dr. Lester Please exercise your independent, professional judgment in responding to the clarification form. Clinical indicators are provided on the bottom of this form for your review Please check appropriate box(s): [ x] Acute Renal Failure (ARF) / Acute Kidney Injury (WALLACE) [ ] Acute Tubular Necrosis (ATN) [ ] Other Etiology or underlying conditions related to the diagnosis of ARF/ WALLACE: [ ] Acute on Chronic Renal Failure please specify Stage of CKD [ ] Other diagnosis [ ] Unable to determine In addition, please specify: Present on Admission (POA): [ x] Yes [ ] No [ ] Unable to determine For continuity of documentation, please document condition throughout progress notes and discharge summary. Thank You. CLINICAL INDICATORS - SIGNS / SYMPTOMS / LABS 07/05 LAB: CREATININE 2.96 3.23 3.79 RENAL CONSULT 07/05: WALLACE WITH CHRONIC KIDNEY DISEASE MOST LIKELY HAS ACUTE TUBULAR NECROSIS VS GLOMERULONEPHRITIS RENAL PN /: ACUTE KIDNEY INJURY ON CKD 5. PN 10: NEPHROTIC SYNDROME WITH UNSPECIFIED MORPHOLOGIC CHANGES. CHRONIC LIKELY DIABETIC NEPHROPATHY. RISKS: H&P: PITTING EDEMA BILATERALLY EXTENDING FROM THE FOOT TO [place]. EMPHYSEMATOUS CYSTITIS; HYPOKALEMIA; CKD. TREATMENT: NEPHROLOGY CONSULT 07/05 MAR: IV LASIX 40 MG 07/06, 07/07 SERIAL LABS: BMP DAILY --- National [employer] Guidelines for CKD Staging Stage I Kidney damage with normal or increased GFR GFR > 90 Stage II Kidney damage with mildly decreased GFR GFR 60-89 Stage III Kidney damage with moderately decreased GFR GFR 30-59 Stage IV Kidney damage with severely decreased GFR GFR 16-29 Stage V Kidney failure GFR<15 ESRD End Stage Renal Disease On dialysis Acute Renal Failure/Acute Kidney Failure defined as: Increases in SCr by (>) 0.3 mg/dl within 48 hours OR- Increases in SCr by (>) 1.5 times baseline, known or presumed to have occurred within the prior 7 days OR- Urine volume < 0.5 ml/kg/hour for 6 hours (KDIGO supplement 2012 for RIFLE/MARY criteria) (This form is maintained as a part of the permanent medical record) 2014 [employer] All Rights Reserved Demetra Somers RN, BSN [email or web address] Office: [phone] [email or web address]
--- NOTE | 2018-07-12 13:43 | PDOC.PN ---
- Subjective Encounter Start Date: 07/12/18 Encounter Start Time: 11:50 Subjective: pt up in chair no complains - Objective Vital Signs & Weight: Vital Signs (12 hours) Temp Pulse Pulse Pulse Resp BP BP 07/12/18 11:40 97.5 F L 60 16 07/12/18 09:50 63 67 141/63 H 154/69 H 07/12/18 07:15 98 F 65 16 07/12/18 04:46 98.1 F 63 16 BP BP Pulse Ox Pulse Ox Pulse Ox 07/12/18 11:40 144/67 H 97 07/12/18 09:50 98 98 07/12/18 07:15 135/62 95 07/12/18 04:46 127/58 L 96 Weight Weight 135 lb 4.8 oz I&O: 07/11/18 07/12/18 07/13/18 06:59 06:59 06:59 Intake Total 700 1090 Output Total 1300 550 Balance -600 540 Result Diagrams: 07/10/18 04:51 07/12/18 05:02 Additional Labs: Accuchecks 07/12/18 07/12/18 07/11/18 11:09 05:40 20:37 POC Glucose 83 69 L 93 07/11/18 16:45 POC Glucose 84 Phys Exam - Physical Examination Respiratory: no wheezing, no rales, no rhonchi, wheezing present, clear to auscultation bilateral Cardiovascular: RRR, no significant murmur, no rub, gallop, irregular Gastrointestinal: soft, non-tender, no distention, positive bowel sounds Dx/Plan (1) Emphysematous cystitis Code(s): N30.80 - OTHER CYSTITIS WITHOUT HEMATURIA Status: Acute Comment: GNR on urine Cx.Final pending (2) WALLACE (acute kidney injury) Code(s): N17.9 - ACUTE KIDNEY FAILURE, UNSPECIFIED Status: Acute (3) UTI (urinary tract infection) Status: Acute Qualifiers: Urinary tract infection type: acute cystitis Hematuria presence: without hematuria Qualified Code(s): N30.00 - Acute cystitis without hematuria (4) Hypokalemia Code(s): E87.6 - HYPOKALEMIA Status: Acute (5) Anasarca Code(s): R60.1 - GENERALIZED EDEMA Status: Acute - Plan ua culture sensitivities pending -: pt wants to go to snf -: creatinine still worsening and pt is now nauseated -: she has no appetitie will change her diet to regular to see how she does. -: will remove monterroso in am and she will need a total of 4 week of abx * . Review of Systems - Review of Systems Respiratory: negative: Cough, Dry, Shortness of Breath, Hemoptysis, SOB with Excertion, Pleuritic Pain, Sputum, Wheezing Cardiovascular: negative: chest pain, palpitations, orthopnea, paroxysmal nocturnal dyspnea, edema, light headedness, other Gastrointestinal: Nausea Genitourinary: negative: Dysuria, Frequency, Incontinence, Hematuria, Retention , Other - Medications/Allergies Allergies/Adverse Reactions: Allergies Allergy/AdvReac Type Severity Reaction Status Date / Time No Known Allergies Allergy Verified 07/04/18 14:45 Medications: Current Medications Acetaminophen (Tylenol) 650 mg PO Q4H PRN PRN Reason: Headache/Fever or Pain Al Hydroxide/Mg Hydroxide (Maalox) 15 ml PO Q4H PRN PRN Reason: Heartburn or Indigestion Benzonatate (Tessalon) 100 mg PO Q4H PRN PRN Reason: Cough Bisacodyl (Dulcolax) 10 mg PO DAILYPRN PRN PRN Reason: Constipation Bumetanide (Bumex) 1 mg PO DAILY [facility] Last Admin: 07/12/18 09:34 Dose: 1 mg Calcium Carbonate (Tums) 1,000 mg PO Q4H PRN PRN Reason: Heartburn or Indigestion Clonidine (Catapres) 0.1 mg PO Q4H PRN PRN Reason: Systolic BP > 160 Last Admin: 07/10/18 17:00 Dose: 0.1 mg Dextrose/Water (Dextrose 50%) 25 gm SLOW IVP PRN PRN PRN Reason: Hypoglycemia Famotidine (Pepcid) 20 mg PO QPM [facility] Last Admin: 07/11/18 19:27 Dose: 20 mg Fenofibrate (Tricor) 145 mg PO DAILY [facility] Last Admin: 07/12/18 09:34 Dose: 145 mg Glucagon (Glucagon) 1 mg IM PRN PRN PRN Reason: Hypoglycemia Guaifenesin (Robitussin Sf) 200 mg PO Q4H PRN PRN Reason: Cough Last Admin: 07/11/18 01:46 Dose: 200 mg Heparin Sodium (Porcine) (Heparin) 5,000 units SC BID [facility] Last Admin: 07/12/18 09:34 Dose: 5,000 units Hydralazine HCl (Apresoline) 10 mg SLOW IVP Q4H PRN PRN Reason: Systolic BP > 170 Ceftriaxone Sodium 1 gm/ (Sodium Chloride) 100 mls @ 200 mls/hr IVPB Q24HR [facility] Last Admin: 07/12/18 09:34 Dose: 100 mls Dextrose/Water (D5w) 1,000 mls @ 0 mls/hr IV .Q0M PRN PRN Reason: Hypoglycemia Levofloxacin 250 mg/ Device 50 mls @ 100 mls/hr IVPB 2000 [facility] Last Admin: 07/11/18 19:27 Dose: 50 mls Promethazine HCl 12.5 mg/ (Sodium Chloride) 50.5 mls @ 202 mls/hr IVPB Q6H PRN PRN Reason: Nausea/Vomiting Last Admin: 07/11/18 10:50 Dose: 50.5 mls Insulin Human Lispro (Humalog) 0 units SC .MODERATE SLIDING SC PRN PRN Reason: Moderate Correctional Scale Last Admin: 07/10/18 17:00 Dose: 6 unit Insulin Human Lispro (Humalog) 0 units SC .BEDTIME SLIDING SC PRN PRN Reason: Bedtime Correctional Scale Loratadine (Claritin) 10 mg PO DAILYPRN PRN PRN Reason: Sinus Symptoms Metoprolol Succinate (Toprol Xl) 100 mg PO DAILY [facility] Last Admin: 07/12/18 09:34 Dose: 100 mg Nifedipine (Procardia Xl) 30 mg PO DAILY [facility] Last Admin: 07/12/18 09:35 Dose: 30 mg Nitroglycerin (Nitrostat) 0.4 mg SL Q5MIN PRN PRN Reason: Chest Pain Ondansetron HCl (Zofran) 4 mg IVP Q4H PRN PRN Reason: Nausea/Vomiting Last Admin: 07/11/18 07:53 Dose: 4 mg Saccharomyces Boulardii (Florastor) 250 mg PO DAILY [facility] Last Admin: 07/12/18 09:35 Dose: 250 mg Senna (Senokot) 2 tab PO HSPRN PRN PRN Reason: Constipation Sodium Chloride (Flush - Normal Saline) 10 ml IVF Q12HR [facility] Last Admin: 07/12/18 09:35 Dose: 10 ml Sodium Chloride (Flush - Normal Saline) 10 ml IVF PRN PRN PRN Reason: Saline Flush Last Admin: 07/09/18 19:45 Dose: 10 ml Tramadol HCl (Ultram) 50 mg PO Q4H PRN PRN Reason: Moderate Pain (4-6) Last Admin: 07/10/18 22:37 Dose: 50 mg Vitamin B Complex/Vit C/Folic Acid (Nephro-Alexandre Tablet) 1 tab PO DAILY [facility] Last Admin: 07/12/18 09:34 Dose: Not Given
--- NOTE | 2018-07-12 18:15 | PRG ---
DATE OF SERVICE: 07/12/2018 SUBJECTIVE: Patient was seen and examined at bedside and overnight events noted. Patient denies any shortness of breath or chest pain or palpitation. No history of nausea or vomitin g or diarrhea or fever or chills or cramps. OBJECTIVE: GENERAL: This is a well-built female, in no apparent distress. VITAL SIGNS: Temperature 98.1, pulse 62, respiratory rate , blood pressure 144/61. HEENT: Atraumatic, normocephalic. Oral mucosa is moist. NECK: Supple. CARDIOVASCULAR: S1 and S2 heard. Rate and rhythm regular. RESPIRATORY: Clear to auscultation. GASTROINTESTINAL: Abdomen is soft. MUSCULOSKELETAL: No tenderness. No edema. DERMATOLOGIC: No skin rash. NEUROLOGIC: Alert and awake and oriented x3. No focal neurologic deficits. Moving all the extremit ies. PSYCHIATRIC: Mood and affect normal. LABORATORY DATA: Potassium is 3.7, BUN 57, creatinine 3.7. ASSESSMENT AND PLAN: 1. Acute kidney injury on chronic kidney disease, stable. No acute indication for dialysis. 2. Edema. 3. Diabetic nephropathy. 4. Proteinuria. 5. Hypertension, stable. 6. We will continue to monitor. No acute indication for dialysis.
[2018-07-12] MEDS: Famotidine 20 MG TAB PO SCH (21:46)
[2018-07-12] MEDS: traMADol HCl 50 MG TAB PO PRN (21:56)
[2018-07-13 05:11] LABS: Anion Gap 10 mmol/L (10-20); BUN (Urea Nitrogen) 61 mg/dL (9.8-20.1); Calc. Creatinine Clearance 13 mL/min (70-130); Calcium 7.4 mg/dL (7.8-10.44); Carbon Dioxide 26 mmol/L (23-31); Chloride 105 mmol/L (98-107); Estimated GFR-MDRD 11; Glucose 119 mg/dL (83-110); Potassium 3.5 mmol/L (3.5-5.1); Sodium 137 mmol/L (136-145)
[2018-07-13] MEDS: Ondansetron HCl/PF 4 MG/2 ML Vial IVP PRN ×3 (08:19→20:59)
[2018-07-13] MEDS: Saccharomyces boulardii 250 MG CAP PO SCH (08:23)
[2018-07-13] MEDS: Folic Acid/Vit B Comp W-C PO SCH (08:23)
[2018-07-13] MEDS: NIFEdipine XL 30 MG TAB PO SCH (08:23)
[2018-07-13] MEDS: Fenofibrate Nanocrystallized 145 MG TAB PO SCH (08:23)
[2018-07-13] MEDS: Bumetanide 1 MG TAB PO SCH (08:23)
[2018-07-13] MEDS: Heparin 5,000 UNITS/ML VIAL SC SCH ×2 (08:24→20:50)
--- NOTE | 2018-07-13 11:44 | PDOC.PN ---
- Subjective Encounter Start Date: 07/13/18 Encounter Start Time: 11:42 Still nauseated and no appetite. Has voided sine Ac d/c'd. - Objective Vital Signs & Weight: Vital Signs (12 hours) Temp Pulse Resp BP Pulse Ox 07/13/18 08:23 59 L 07/13/18 08:00 99.1 F 59 L 17 165/70 H 98 07/13/18 03:17 97.9 F 58 L 15 144/67 H 93 L 07/13/18 00:00 97.8 F 61 14 156/68 H 92 L Weight Weight 133 lb I&O: 07/12/18 07/13/18 07/14/18 06:59 06:59 06:59 Intake Total 1090 1300 Output Total 550 1575 Balance 540 -275 Result Diagrams: 07/10/18 04:51 07/13/18 04:37 Additional Labs: Accuchecks 07/13/18 07/12/18 07/12/18 05:51 20:26 16:23 POC Glucose 108 182 H 143 H Phys Exam - Physical Examination Constitutional: NAD Gen ill appearing. Respiratory: no wheezing, no rales, no rhonchi, clear to auscultation bilateral Cardiovascular: RRR, no significant murmur Gastrointestinal: soft, non-tender, no distention, positive bowel sounds 2+ edema LE's Dx/Plan (1) Emphysematous cystitis Code(s): N30.80 - OTHER CYSTITIS WITHOUT HEMATURIA Status: Acute Comment: GNR on urine Cx.Final pending (2) WALLACE (acute kidney injury) Code(s): N17.9 - ACUTE KIDNEY FAILURE, UNSPECIFIED Status: Acute (3) Anasarca Code(s): R60.1 - GENERALIZED EDEMA Status: Acute (4) CKD (chronic kidney disease) stage 4, GFR 15-29 ml/min Code(s): N18.4 - CHRONIC KIDNEY DISEASE, STAGE 4 (SEVERE) Status: Chronic (5) Chronic anemia Code(s): D64.9 - ANEMIA, UNSPECIFIED Status: Chronic Comment: S/P BM Bx (6) General weakness Code(s): R53.1 - WEAKNESS Status: Chronic - Plan * Patient's reports Neprhology has recommended HD. They are very concerned about that and want to know how to get on the transplant list. Counseled patient and that is something to be pursued when she is more stable. HD may help with the nausea. They are concerned that she has not been able to eat. Clearing the uremia may help with that. * Still awaiting the results of the urine bacteria isolate. Continue Levaquin and Rocephin. * Need to monitor the urine output with Ac out.
[2018-07-13] MEDS: cefTRIAXone\\ROCEPHIN 1 GM in Sodium Chloride 0.9% 100 ML IVPB SCH ×2 (13:10→13:11)
--- NOTE | 2018-07-13 19:04 | PRG ---
DATE OF SERVICE: 07/13/2018 SUBJECTIVE: The patient was seen and examined at bedside. The patient remains nauseated. a t the bedside. The patient is edematous. OBJECTIVE: GENERAL: This is a well-built female, in no apparent distress. VITAL SIGNS: Temperature 98.3, pulse 61, respiratory rate 14, blood pressure 113/65. HEENT: Atraumatic, normocephalic. NECK: Supple. CARDIOVASCULAR: S1, S2 heard. Rate and rhythm regular. RESPIRATORY: Clear. GASTROINTESTINAL: Abdomen is soft. MUSCULOSKELETAL: edema. DERMATOLOGIC: No rash. NEUROLOGIC: Alert, awake. PSYCHIATRIC: Mood and affect normal. LABORATORY DATA: Hemoglobin is 10.1, potassium is 3.5, BUN is 61, creatinine is 3.9. ASSESSMENT AND PLAN: 1. Acute kidney injury on chronic kidney disease stage 4 with worsening creatinine. 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 Seth and we agreed that the patient may need dialysis. The patient is having uremic symptoms including nausea and edema. The patient is resistant, however, is willing to have dialysis and understands the situation, but the patient is resistant to the idea ___ __ to think about it. Primary hospitalist also talked to them about that. 2. Edema. 3. Diabetic nephropathy. 4. Proteinuria. 5. Hypertension. 6. Anemia. 7. It seems like the patient is heading towards dialysis, but resistant to the idea. We will contin ue counseling. Avoid nephrotoxins and we will follow.
[2018-07-13] MEDS: Famotidine 20 MG TAB PO SCH ×2 (19:57→20:51)
[2018-07-13] MEDS: cloNIDine 0.1 MG TAB PO PRN (20:59)
[2018-07-14 05:13] LABS: Anion Gap 14 mmol/L (10-20); BUN (Urea Nitrogen) 63 mg/dL (9.8-20.1); Calc. Creatinine Clearance 17 mL/min (70-130); Calcium 7.4 mg/dL (7.8-10.44); Carbon Dioxide 22 mmol/L (23-31); Chloride 105 mmol/L (98-107); Estimated GFR-MDRD 11; Glucose 87 mg/dL (83-110); Potassium 3.6 mmol/L (3.5-5.1); Sodium 137 mmol/L (136-145)
[2018-07-14] MEDS: Ondansetron HCl/PF 4 MG/2 ML Vial IVP PRN ×3 (08:12→20:00)
[2018-07-14] MEDS: Heparin 5,000 UNITS/ML VIAL SC SCH ×2 (08:12→21:12)
[2018-07-14] MEDS: Folic Acid/Vit B Comp W-C PO SCH (10:09)
[2018-07-14] MEDS: Fenofibrate Nanocrystallized 145 MG TAB PO SCH (10:09)
[2018-07-14] MEDS: Bumetanide 1 MG TAB PO SCH (10:09)
[2018-07-14] MEDS: NIFEdipine XL 30 MG TAB PO SCH (10:09)
[2018-07-14] MEDS: Saccharomyces boulardii 250 MG CAP PO SCH (10:09)
--- NOTE | 2018-07-14 10:32 | PQF ---
CLINICAL DOCUMENTATION IMPROVEMENT CLARIFICATION FORM: ICD-10 Updated PLEASE DO AN ADDENDUM TO THE PROGRESS NOTE WITH ANY DOCUMENTATION UPDATES OR ADDITIONS AND CARRY THROUGH TO DC SUMMARY. THANK YOU. DATE: 07/14/18; 07/17/18 ATTN: Dr. Andre Please exercise your independent, professional judgment in responding to the clarification form. Clinical indicators are provided on the bottom of this form for your review Please check appropriate box(s): [ ] Acute Kidney Injury (WALLACE) on Chronic Kidney Disease stage 4 [ ] WALLACE with Acute Tubular Necrosis (ATN) [ ] WALLACE with Glomerulonephritis [ ] Other diagnosis [ ] Unable to determine In addition, please specify: Present on Admission (POA): [ ] Yes [ ] No [ ] Unable to determine For continuity of documentation, please document condition throughout progress notes and discharge summary. Thank You. CLINICAL INDICATORS - SIGNS / SYMPTOMS / LABS RENAL CONSULT 07/05: WALLACE WITH CHRONIC KIDNEY DISEASE W/U IS PENDING. MOST LIKELY HAS ACUTE TUBULAR NECROSIS VS GLOMERULONEPHRITIS RENAL PN 07/13: CR 3.9 WALLACE ON CKD STAGE 4 WITH WORSENING CREATININE. RISKS: RENAL CONS: ADMITTED FOR EMPHYSEMATOUS CYSTITIS HX HYPERTENSION, ANEMIA, CKD. WALLACE WITH CKD. EDEMA, ANASARCA. HYPOKALEMIA, HYPOMAGNESEMIA TREATMENT: RENAL CONSULT MAR IV LASIX 40 MG 07/06, 07/07 SERIAL LABS: BMP DAILY Thank you, Demetra (This form is maintained as a part of the permanent medical record) 2015 [email or web address], [employer] All Rights Reserved Demetra Somers RN, BSN [email or web address] Office: [phone] [facility]
[2018-07-14] MEDS: cefTRIAXone\\ROCEPHIN 1 GM in Sodium Chloride 0.9% 100 ML IVPB SCH (13:50)
--- NOTE | 2018-07-14 16:59 | PDOC.PN ---
- Subjective Encounter Start Date: 07/14/18 Encounter Start Time: 10:20 Still nauseated and still vomiting. She reports her gets frustrated because she is not able to get up and around more. He thinks that if she will just eat and push herself to get up more, she would get better. She wants to make sure there is no other alternative to HD. - Objective Vital Signs & Weight: Vital Signs (12 hours) Temp Pulse Pulse Pulse Resp BP BP 07/14/18 14:01 68 67 152/66 H 149/67 H 07/14/18 13:13 98.0 F 67 14 07/14/18 10:09 67 07/14/18 07:53 98.7 F 67 15 BP Pulse Ox Pulse Ox Pulse Ox 07/14/18 14:01 97 98 07/14/18 13:13 149/68 H 98 07/14/18 10:09 07/14/18 07:53 170/85 H 98 Weight Admit Weight 137 lb 4.8 oz Weight 181 lb I&O: 07/13/18 07/14/18 07/15/18 06:59 06:59 06:59 Intake Total 1300 520 Output Total 1575 600 Balance -275 -80 Result Diagrams: 07/10/18 04:51 07/14/18 04:18 Additional Labs: Accuchecks 07/14/18 07/13/18 07/13/18 11:00 20:35 16:51 POC Glucose 97 100 102 Phys Exam - Physical Examination Constitutional: NAD Respiratory: no wheezing, no rales, no rhonchi, clear to auscultation bilateral Cardiovascular: RRR, no significant murmur, no rub Gastrointestinal: soft, non-tender, no distention, positive bowel sounds Musculoskeletal: no edema Psychiatric: normal affect Dx/Plan (1) Emphysematous cystitis Code(s): N30.80 - OTHER CYSTITIS WITHOUT HEMATURIA Status: Acute Comment: GNR on urine Cx. Final pending. Sent out for isolation, but results are still pending. Appears to be very stable at this point. Still on Rocephin. (2) WALLACE (acute kidney injury) Code(s): N17.9 - ACUTE KIDNEY FAILURE, UNSPECIFIED Status: Acute Comment: Creatinine continues to decline. She has symptoms of uremia. She has edema and has indication for HD. She is resistant to starting, but believes she will be ready to move forward tomorrow. (3) Anasarca Code(s): R60.1 - GENERALIZED EDEMA Status: Acute (4) CKD (chronic kidney disease) stage 4, GFR 15-29 ml/min Code(s): N18.4 - CHRONIC KIDNEY DISEASE, STAGE 4 (SEVERE) Status: Chronic (5) Chronic anemia Code(s): D64.9 - ANEMIA, UNSPECIFIED Status: Chronic Comment: S/P BM Bx (6) General weakness Code(s): R53.1 - WEAKNESS Status: Chronic (7) Nausea & vomiting Code(s): R11.2 - NAUSEA WITH VOMITING, UNSPECIFIED Status: Acute Comment: Secondary to uremia. Cannot resolve this until she agress to HD. - Plan * Very long discussion with the patient regarding the HD. She feels better that she understands it. If she does not consent to HD tomorrow, she will need to discharge as there is no other treatment option available to her at this time.
--- NOTE | 2018-07-14 17:31 | PRG ---
DATE OF SERVICE: 07/14/2018 SUBJECTIVE: Patient was seen and examined at bedside and overnight events noted. Patient denies any shortness of breath or chest pain or palpitation. No history of nausea or vomitin g or diarrhea or fever or chills or cramps. OBJECTIVE: GENERAL: This is a well-built female, in no apparent distress. VITAL SIGNS: Temperature 98.0, pulse 67, respiratory rate 18, blood pressure 152/66. HEENT: Atraumatic, normocephalic. Oral mucosa is moist. NECK: Supple. CARDIOVASCULAR: S1 and S2 heard. Rate and rhythm regular. RESPIRATORY: Clear to auscultation. GASTROINTESTINAL: Abdomen is soft. MUSCULOSKELETAL: No tenderness. No edema. DERMATOLOGIC: No skin rash. NEUROLOGIC: Alert and awake and oriented x3. No focal neurologic deficits. Moving all the extremit ies. PSYCHIATRIC: Mood and affect normal. LABORATORY DATA: Potassium 3.8, BUN 63, creatinine is 3.9. ASSESSMENT AND PLAN: 1. Acute kidney injury on chronic kidney stage 4, renal function with worsening parameters and the p atient is not ready for dialysis yet. The patient was counseled and we will follow. 2. Edema. 3. Diabetic nephropathy. 4. Proteinuria secondary to diabetic nephropathy 5. Hypertension, stable. 6. Anemia of chronic disease. 7. We will continue counseling on dialysis.
[2018-07-14] MEDS: cloNIDine 0.1 MG TAB PO PRN (21:10)
[2018-07-14] MEDS: Famotidine 20 MG TAB PO SCH (21:11)
[2018-07-15 04:50] LABS: Anion Gap 13 mmol/L (10-20); BUN (Urea Nitrogen) 64 mg/dL (9.8-20.1); Calc. Creatinine Clearance 17 mL/min (70-130); Calcium 7.4 mg/dL (7.8-10.44); Carbon Dioxide 23 mmol/L (23-31); Chloride 107 mmol/L (98-107); Estimated GFR-MDRD 11; Glucose 76 mg/dL (83-110); Potassium 3.4 mmol/L (3.5-5.1); Sodium 140 mmol/L (136-145)
[2018-07-15] MEDS: Ondansetron HCl/PF 4 MG/2 ML Vial IVP PRN ×2 (08:28→14:13)
[2018-07-15] MEDS: Heparin 5,000 UNITS/ML VIAL SC SCH ×2 (08:31→21:42)
[2018-07-15] MEDS: Saccharomyces boulardii 250 MG CAP PO SCH (08:32)
[2018-07-15] MEDS: Bumetanide 1 MG TAB PO SCH (08:32)
[2018-07-15] MEDS: Folic Acid/Vit B Comp W-C PO SCH (08:32)
[2018-07-15] MEDS: Fenofibrate Nanocrystallized 145 MG TAB PO SCH (08:32)
[2018-07-15] MEDS: NIFEdipine XL 30 MG TAB PO SCH (08:32)
--- NOTE | 2018-07-15 11:15 | PRG ---
DATE OF SERVICE: 07/15/2018 SUBJECTIVE: Patient was seen and examined at bedside and overnight events noted. Patient denies any shortness of breath or chest pain or palpitation. No history of nausea or vomiting or diarrhea or f ever or chills or cramps. OBJECTIVE: GENERAL: This is an elderly female in no apparent distress. VITAL SIGNS: Temperature 98.2, pulse 67, respiratory 15, blood pressure 157/70. HEENT: Atraumatic, normocephalic. Oral mucosa is moist. NECK: Supple. CARDIOVASCULAR: S1, S2 heard. Rate and rhythm regular. RESPIRATORY: Clear to auscultation. GASTROINTESTINAL: Abdomen is soft. MUSCULOSKELETAL: No tenderness, no edema. DERMATOLOGIC: No skin rash. NEUROLOGIC: Alert and awake and oriented x3. No focal neurologic deficits. Moving all the extremit ies. PSYCHIATRIC: Mood and affect normal. LABORATORY DATA: Potassium is 3.4, BUN 64, creatinine is 4.1. ASSESSMENT AND PLAN: 1. Acute kidney injury on chronic kidney disease stage IV. The patient is almost ready for dialysis . We will have surgery consult for access placement if available. 2. Edema. 3. Diabetic nephropathy. 4. Proteinuria. 5. Hypertension. 6. Anemia. 7. We will continue to follow.
--- NOTE | 2018-07-15 12:35 | PDOC.PN ---
- Subjective Encounter Start Date: 07/15/18 Encounter Start Time: 08:30 Still has nausea. Still can't really keep anything down. Still complains about the multiple places where attempts were made to place an IV. Has decided that she will go forward with HD. - Objective Vital Signs & Weight: Vital Signs (12 hours) Temp Pulse Resp BP Pulse Ox 07/15/18 11:40 97.7 F 66 15 161/69 H 98 07/15/18 07:30 98.2 F 67 15 157/70 H 97 07/15/18 04:01 99 07/15/18 04:00 98.7 F 67 16 174/79 H 96 Weight Admit Weight 137 lb 4.8 oz Weight 126 lb 11.2 oz I&O: 07/14/18 07/15/18 07/16/18 06:59 06:59 06:59 Intake Total 520 440 Output Total 600 1050 Balance -80 -610 Result Diagrams: 07/10/18 04:51 07/15/18 03:45 Additional Labs: Accuchecks 07/15/18 07/15/18 07/14/18 11:02 05:40 20:33 POC Glucose 85 83 88 07/14/18 07/14/18 17:27 05:31 POC Glucose 85 87 Phys Exam - Physical Examination Constitutional: NAD Ill appearing. Pale. Respiratory: no wheezing, no rales, no rhonchi, clear to auscultation bilateral Cardiovascular: RRR, no significant murmur, no rub Gastrointestinal: soft, non-tender, no distention, positive bowel sounds 2+ edema, LE's. Dx/Plan (1) Emphysematous cystitis Code(s): N30.80 - OTHER CYSTITIS WITHOUT HEMATURIA Status: Acute Comment: GNR on urine Cx. Final pending. Sent out for isolation, but results are still pending. Appears to be very stable at this point. Still on Rocephin. (2) WALLACE (acute kidney injury) Code(s): N17.9 - ACUTE KIDNEY FAILURE, UNSPECIFIED Status: Acute Comment: Creatinine continues to decline. She has symptoms of uremia. She has edema and has indication for HD. Decided to proceed with HD. Discussed with Nephrology. She will need access and that will likely not happen until Tuesday. (3) Anasarca Code(s): R60.1 - GENERALIZED EDEMA Status: Acute (4) CKD (chronic kidney disease) stage 4, GFR 15-29 ml/min Code(s): N18.4 - CHRONIC KIDNEY DISEASE, STAGE 4 (SEVERE) Status: Chronic (5) Chronic anemia Code(s): D64.9 - ANEMIA, UNSPECIFIED Status: Chronic Comment: S/P BM Bx (6) General weakness Code(s): R53.1 - WEAKNESS Status: Chronic (7) Nausea & vomiting Code(s): R11.2 - NAUSEA WITH VOMITING, UNSPECIFIED Status: Acute Comment: Secondary to uremia. Cannot resolve this until she agress to HD. - Plan * Above.
[2018-07-15] MEDS: cefTRIAXone\\ROCEPHIN 1 GM in Sodium Chloride 0.9% 100 ML IVPB SCH (12:50)
[2018-07-15] MEDS: Famotidine 20 MG TAB PO SCH (21:42)
[2018-07-16 05:31] LABS: Anion Gap 12 mmol/L (10-20); BUN (Urea Nitrogen) 65 mg/dL (9.8-20.1); Calc. Creatinine Clearance 11 mL/min (70-130); Calcium 7.3 mg/dL (7.8-10.44); Carbon Dioxide 24 mmol/L (23-31); Chloride 106 mmol/L (98-107); Estimated GFR-MDRD 11; Glucose 85 mg/dL (83-110); Potassium 3.3 mmol/L (3.5-5.1); Sodium 139 mmol/L (136-145)
[2018-07-16] MEDS: Ondansetron HCl/PF 4 MG/2 ML Vial IVP PRN ×3 (09:02→17:14)
[2018-07-16] MEDS: Heparin 5,000 UNITS/ML VIAL SC SCH ×2 (09:06→20:19)
[2018-07-16] MEDS: Folic Acid/Vit B Comp W-C PO SCH (10:25)
[2018-07-16] MEDS: Saccharomyces boulardii 250 MG CAP PO SCH (10:25)
[2018-07-16] MEDS: Fenofibrate Nanocrystallized 145 MG TAB PO SCH (10:26)
[2018-07-16] MEDS: Bumetanide 1 MG TAB PO SCH (10:26)
[2018-07-16] MEDS: NIFEdipine XL 30 MG TAB PO SCH ×2 (10:26→10:31)
[2018-07-16] MEDS ORDERED: Potassium Chloride 20 MEQ in Premix Bag 1 BAG IVPB SCH (11:45)
--- NOTE | 2018-07-16 11:56 | PRG ---
DATE OF SERVICE: 07/16/2018 SUBJECTIVE: The patient is about the same. She continues to have generalized weakness, nausea and s ome vomiting. OBJECTIVE: VITAL SIGNS: Temperature 98.5, pulse 65, respirations 18, O2 sat 96% on room air, BP 115/55. GENERAL APPEARANCE: Pale, age-appropriate female. She is awake and alert. She is in no distress. She is very slightly ill appearing. She is generally weak. CARDIOVASCULAR: Heart has regular rate and rhythm without murmurs, gallops or rubs. LUNGS: Clear to auscultation bilaterally with good chest wall expansion and air exchange. ABDOMEN: Mildly diffusely tender without any localization. No guarding, no rebound. EXTREMITIES: Persistent 2+ pitting edema in both lower extremities from mid calf down. LABORATORY DATA: Sodium 139, potassium 3.3, chloride 106, CO2 is 24, BUN 65, creatinine 4.08, glucos e 85, calcium 7.3, blood sugars 90 to 143. IMPRESSION AND PLAN: 1. Acute kidney injury. The patient initially presented with emphysematous [facility]stitis [facility], but has subsequently had progressive worsening kidney failure. She has become uremic and sympto matic in the form of nausea, vomiting, peripheral edema. She was recommended for hemodialysis, but w as resistant. She did ultimately decide yesterday to go forward with it. I spoke to Dr. Andre yes terday. He will be talking to surgery regarding placement of a dialysis access. 2. Emphysematous cystitis. Cultures were not able to successfully identify the culprit bacteria at this facility. It has been sent out to another facility; however, it is still pending at this point. She has been on Rocephin and clinically stable from that perspective. 3. Anasarca and generalized edema secondary likely to the renal failure and inability to have adequa te p.o. intake. 4. Chronic kidney disease stage 4, worsening into end-stage disease. 5. Chronic anemia. 6. Generalized weakness, combination of multiple etiologies including chronic anemia, now with uremi a and poor p.o. intake. 7. Nausea and vomiting secondary to the uremia, not likely to resolve until dialysis is initiated. The patient was getting up to the bedside commode shortly after my visit with her. 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 She has a small skin tear on the right forearm. She complains of very minimal discomfort in the right buttock and hip area. Her exam reveals no significant change other than the small skin tear. She appears to have good range of motion in the right hip, but I will go ahead and obtain an x-ray o f the right hip. She specifically denied hitting her head. There was no witness of her hitting her head. No evidence that she has any neurologic or head injury at this point. We will therefore foreg o a head CT at that time.
--- NOTE | 2018-07-16 13:33 | RAD ---
RIGHT HIP 2 VIEWS: HISTORY: Fall. RIGHT hip injury. FINDINGS: Mild joint space narrowing, osteophytosis, and subchondral sclerosis. Femoral head contour is mainta ined. No acute fracture or dislocation. Calcification over the arterial structures. IMPRESSION: 1. Mild osteoarthritic changes right hip. 2. Atherosclerosis. POS: [facility]
[2018-07-16] MEDS ORDERED: Tuberculin PPD 0.1 ML VIAL I-DERMAL SCH (13:45)
--- NOTE | 2018-07-16 14:25 | PRG ---
DATE OF SERVICE: 07/16/2018 SUBJECTIVE: The patient was seen and examined at bedside and overnight events noted. Patient denies any shortness of breath or chest pain or palpitation. No history of nausea or vomiting or diarrhea or fever or chills or cramps. OBJECTIVE: General: This is a well-built female in no apparent distress. Vital Signs: Temperature 98.5, pulse 62, respiratory rate 18, and blood pressure 130/61. HEENT: Atraumatic, normocephalic, Oral mucosa is moist. Neck: Supple. Cardiovascular: S1 and S2 heard. Rate and rhythm regular. Respiratory: Clear to auscultation. Gastrointestinal: Abdomen is soft. Musculoskeletal: 1+ edema. Dermatologic: No skin rash. Neurologic: Alert and awake and oriented x3. No focal neurologic deficits. Moving all the extremit ies. Psychiatric: Mood and affect normal. LABORATORY DATA: Potassium is 3.3, BUN is 65, creatinine is 4.8. ASSESSMENT AND PLAN: 1. Acute kidney injury on chronic kidney disease stage 5. Renal function getting worse. The patien t is ready for dialysis. We will start on dialysis. We will have Surgery consult in the morning. 2. Edema. 3. Diabetic nephropathy. 4. 5. Hypotension. We will continue to follow. Plan for have fistula placement and dialysis tomorrow.
[2018-07-16] MEDS: cefTRIAXone\\ROCEPHIN 1 GM in Sodium Chloride 0.9% 100 ML IVPB SCH (14:59)
[2018-07-16] MEDS: Famotidine 20 MG TAB PO SCH (20:24)
[2018-07-17 05:08] LABS: INR-International Normal Ratio 1.3; Prothrombin Time 15.8 SEC (12.0-14.7)
[2018-07-17 05:09] LABS: PTT 70.5 SEC (22.9-36.1)
[2018-07-17 05:10] LABS: Anion Gap 12 mmol/L (10-20); BUN (Urea Nitrogen) 62 mg/dL (9.8-20.1); Calc. Creatinine Clearance 12 mL/min (70-130); Calcium 7.5 mg/dL (7.8-10.44); Carbon Dioxide 24 mmol/L (23-31); Chloride 107 mmol/L (98-107); Estimated GFR-MDRD 11; Glucose 87 mg/dL (83-110); Potassium 3.4 mmol/L (3.5-5.1); Sodium 140 mmol/L (136-145)
[2018-07-17] MEDS ORDERED: CEFAZOLIN/Water 2 GM/20 ML SYRINGE SLOW IVP SCH (08:15)
[2018-07-17] MEDS: Heparin 5,000 UNITS/ML VIAL SC SCH ×2 (08:43→20:49)
[2018-07-17] MEDS: Fenofibrate Nanocrystallized 145 MG TAB PO SCH (09:00)
[2018-07-17] MEDS: Folic Acid/Vit B Comp W-C PO SCH (09:00)
[2018-07-17] MEDS: Bumetanide 1 MG TAB PO SCH (09:00)
--- NOTE | 2018-07-17 09:13 | HP ---
HISTORY OF PRESENT ILLNESS: This is a 73-year-old female, who lives in [place]. She works [employer]. She fell in March, fracturing her elbow, has not been able to walk or return to work since. She went to her physician and found to have chronic kidney disease. She is admitted on this occasion for progression of that, secondary to diabetes and hypertension. I have been asked by Dr. Andre to provide dialysis access. She had a left arm PICC line, which I immediately removed on seeing her this morning. Ultrasound vein mapping, both arms, are pending. ALLERGIES: None. TOBACCO: None. ALCOHOL: None. MEDICATIONS: At home, vitamin D3, metoprolol, losartan, Bumex, fenofibric acid, choline, she takes i nsulin at home. PAST SURGICAL HISTORY: Cholecystectomy, appendectomy, hysterectomy, right carotid endarterectomy at [facility] by Dr. Carlin. PAST MEDICAL HISTORY: Hypertension, chronic kidney disease, diabetes mellitus. REVIEW OF SYSTEMS: Ten-point noncontributory. FAMILY HISTORY: Noncontributory. PHYSICAL EXAMINATION: VITAL SIGNS: 5 feet 2, 131 pounds, 24 BMI, 98.5, 70, 184/79. HEAD, EARS, EYES, NOSE, AND THROAT: Unremarkable. LUNGS: Clear to auscultation. CARDIAC: Regular rate and rhythm without murmur, rub, or gallop. ABDOMEN: Soft and nontender. Scars per above history. EXTREMITIES: Unremarkable. Pedal ankle edema, lower extremity edema bilaterally, weakly palpable ra dial pulses, strongly palpable brachial pulses. Left arm PICC line removed immediately. LABORATORY DATA: White count 2.8, hemoglobin 10.1, platelet count 114,000. Sodium 140, potassium 3. 4, BUN 62, creatinine 3.94, GFR 11. ASSESSMENT AND PLAN: 1. Renal failure. Plan hemodialysis catheter, central line and left or right arm dialysis access, p ending vein mapping. She is likely to need a prosthetic graft. 2. Diabetes mellitus, insulin dependent. 3. Hypertension. 4. Diabetes. 5. PICC line access immediately removed report will follow.
[2018-07-17] MEDS ORDERED: PROPOFOL 200 MG/20 ML VIAL ONE (10:53)
[2018-07-17] MEDS ORDERED: Ondansetron HCl/PF 4 MG/2 ML Vial ONE (10:53)
--- NOTE | 2018-07-17 11:24 | ULT ---
UPPER EXTREMITY VENOUS MAPPING EXAMINATION: Date: 07/17/18 COMPARISON: None. HISTORY: 73-year-old female with end-stage renal disease, undergoing dialysis access mapping. TECHNIQUE: Multiplanar Contreras scale sonographic imaging of the vascular structures of bilateral upper extremities obtained with color flow and spectral analysis as detailed above. FINDINGS: The internal jugular vein, subclavian vein, and axillary vein demonstrate patency bilaterally. VESSEL DIAMETER (mm) Right Brachial Artery 3.3 Right Radial Artery 1.1 Right Ulnar Artery 1.3 Left Brachial Artery 3.7 Left Radial Artery 1.1 Left Ulnar Artery 2.5 RIGHT CEPHALIC VEIN: Above Elbow Proximal 1.6 Above Elbow Mid Nonvisualized Above Elbow Distal 0.7 At Elbow 0.7 Below Elbow Proximal 0.9 Below Elbow Mid 0.7 Below Elbow Distal 0.8 RIGHT BASILIC VEIN: Above Elbow Proximal 2.7 Above Elbow Mid 2.0 Above Elbow Distal 1.7 At Elbow 1.9 Below Elbow Proximal 1.7 Below Elbow Mid 1.9 Below Elbow Distal Not seen. LEFT BASILIC VEIN: Above Elbow Proximal 3.4 Above Elbow Mid 1.2 Above Elbow Distal 1.3 At Elbow 1.3 Below Elbow Proximal 0.7 Below Elbow Mid 0.8 Below Elbow Distal 0.3 LEFT CEPHALIC VEIN: Above Elbow Proximal 1.3 Above Elbow Mid 0.9 Above Elbow Distal 0.9 At Elbow 1.1 Below Elbow Proximal 0.6 Below Elbow Mid 0.5 Below Elbow Distal 0.6 IMPRESSION: Vein mapping as detailed above. Venous structures of both upper extremities are quite small, with non visualization of the right cephalic vein in the mid upper arm and nonvisualization of the distal righ t basilic vein in the distal forearm. POS: [facility]
[2018-07-17] MEDS: cefTRIAXone\\ROCEPHIN 1 GM in Sodium Chloride 0.9% 100 ML IVPB SCH ×2 (13:00→20:48)
[2018-07-17] MEDS ORDERED: Sodium Chloride 0.9% 10 ML ONE (13:05)
[2018-07-17] MEDS ORDERED: Heparin 10,000 UNITS/1 ML VIAL ONE (13:05)
[2018-07-17] MEDS ORDERED: Lidocaine 2% PF Inj 2 ML VIAL ONE (13:05)
[2018-07-17] MEDS ORDERED: Bupivacaine HCl 0.5%/Epinephrine 1:200,000/PF 30 ml Vial ONE (13:05)
--- NOTE | 2018-07-17 13:13 | ADD-PRG ---
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 Maybe someone can look into calling [facility] directly if that is possible to get a known sandor ropriate antibiotic to go home on if she is ready for that. She also has renal failure and is nearin g the appropriate time for dialysis per the patient and we talked how, she will likely have a decreas e in urine output at that time, so ensuring that the urine is sterile before she stops making urine b e viral since once she gets an infection and if oligo or anuric it is almost impossible to adequately treat. So I would definitely keep her on 4 weeks of antibiotics even if we are able to identify what that organism is from sensitivity standpoint, but she is adequately voiding now without a catheter.
[2018-07-17] MEDS ORDERED: CEFAZOLIN/Water 2 GM/20 ML SYRINGE ONE (13:20)
[2018-07-17] MEDS ORDERED: Fentanyl 100 MCG/2 ML VIAL ONE (14:17)
[2018-07-17] MEDS ORDERED: Sodium Chloride 0.9% 20 ML ONE (14:53)
[2018-07-17 16:46] LABS: #Lymphocytes 0.7 thou/uL (1.20-3.40); #Monocytes 0.2 thou/uL (0.11-0.59); #Neutrophils 2.8 thou/uL (1.40-6.50); %Basophils 1.1 % (0.0-1.0); %Eosinophils 0.6 % (0.0-10.0); %Lymphocytes 17.6 % (21.0-51.0); %Monocytes 5.8 % (0.0-10.0); %Neutrophils 74.9 % (42.0-75.0); Hemoglobin 8.8 g/dL (12.0-16.0); Mean Corpuscular HGB CONC 32.6 g/dL (32.0-36.0); Mean Corpuscular Hemoglobin 30.6 pg (27.0-31.0); Mean Corpuscular Volume 94.1 fL (78.0-98.0); Platelet Count 143 thou/uL (130-400); RBC Distribution Width 15.9 % (11.5-14.5); Red Blood Cell (RBC) Count 2.88 mill/uL (4.20-5.40); White Blood Cell (WBC) Count 3.8 thou/uL (4.8-10.8)
--- NOTE | 2018-07-17 16:46 | RAD ---
PORTABLE AP CHEST X-RAY: 07/17/2018 HISTORY: Central line insertion. COMPARISON: 07/05/2018 FINDINGS: There has been interval placement of a tunneled right internal jugular vein hemodialysis catheter, wi th the tip overlying the region of the cavoatrial junction. No pneumothorax or pleural effusion is s een. The cardiac silhouette and pulmonary vasculature is within normal limits. Vascular calcificati on is seen in the thoracic aorta. Vertebroplasty changes are seen in the T11-T12 vertebral bodies. Surgical clips overly the right upper quadrant. Osteopenia is present. There has been no interval c hange from the prior exam. IMPRESSION: Interval placement of a tunneled right internal jugular vein hemodialysis catheter. No pneumothorax or pleural effusion is appreciated. POS: [facility]
[2018-07-17] MEDS ORDERED: Promethazine HCl 25 MG/ML VIAL IM SCH (17:00)
--- NOTE | 2018-07-17 17:08 | PDOC.PN ---
- Subjective Encounter Start Date: 07/17/18 Encounter Start Time: 17:06 Subjective: at HD , nauseated - Objective MAR Reviewed: Yes Vital Signs & Weight: Vital Signs (12 hours) Temp Pulse Pulse Pulse Pulse Pulse Resp 07/17/18 10:02 77 75 77 75 07/17/18 08:00 07/17/18 07:27 98.5 F 70 16 BP BP BP BP BP Pulse Ox 07/17/18 10:02 134/61 190/81 H 118/58 L 185/77 H 07/17/18 08:00 98 07/17/18 07:27 184/79 H 98 Weight Admit Weight 137 lb 4.8 oz Weight 131 lb 6 oz I&O: 07/16/18 07/17/18 07/18/18 06:59 06:59 06:59 Intake Total 420 890 Output Total 840 600 Balance -420 290 Result Diagrams: 07/17/18 16:34 07/17/18 04:25 Additional Labs: Accuchecks 07/17/18 07/16/18 07/16/18 06:13 20:34 16:53 POC Glucose 99 122 H 111 H Phys Exam - Physical Examination Neck: no JVD Respiratory: clear to auscultation bilateral Cardiovascular: RRR, no significant murmur Gastrointestinal: soft, positive bowel sounds Musculoskeletal: edema present Dx/Plan (1) ESRD needing dialysis Code(s): N18.6 - END STAGE RENAL DISEASE; Z99.2 - DEPENDENCE ON RENAL DIALYSIS Status: Acute (2) Nausea & vomiting Code(s): R11.2 - NAUSEA WITH VOMITING, UNSPECIFIED Status: Acute Qualifiers: Vomiting type: unspecified Vomiting Intractability: non-intractable Qualified Code(s): R11.2 - Nausea with vomiting, unspecified Comment: Secondary to uremia. Cannot resolve this until she agress to HD. - Plan post HD catheter, in HD at present. HD per renal -: cont nifewdipine for HTN -: cont accu/ss * .
[2018-07-17 17:12] LABS: HBSAB Concentration 1.58 mIU/mL; HBSAg Index 0.16 S/CO (0-0.99); Hep B Core Total Ab Non-Reactive (NonReactive); Hep B Core Total Index 0.08 S/CO (0-0.79); Hep B Surf AB Non-Reactive (NonReactive); Hep B Surf Ag Non-Reactive S/CO (NonReactive); Hep C IgG Ab Non-Reactive (NonReactive)
[2018-07-17] MEDS: Saccharomyces boulardii 250 MG CAP PO SCH (17:16)
--- NOTE | 2018-07-17 18:52 | PRG ---
DATE OF SERVICE: 07/17/2018 SUBJECTIVE: Patient was seen and examined at bedside and overnight events noted. Patient denies any shortness of breath or chest pain or palpitation. No history of nausea or vomiting or diarrhea or f ever or chills or cramps. OBJECTIVE: GENERAL: This is a well-built female in no apparent distress. VITAL SIGNS: Temperature 98.5, pulse 70, respirations 18, blood pressure 118/58. HEENT: Atraumatic, normocephalic. Oral mucosa is moist. NECK: Supple. CARDIOVASCULAR: S1, S2 heard. Rate and rhythm regular. RESPIRATORY: Clear to auscultation. GASTROINTESTINAL: Abdomen is soft. MUSCULOSKELETAL: 1+ edema. DERMATOLOGIC: No skin rash. NEUROLOGIC: Alert and awake and oriented x3. No focal neurologic deficits. Moving all the extremiti es. PSYCHIATRIC: Mood and affect normal. LABORATORY DATA: Potassium 3.4, BUN 62, creatinine 3.9. ASSESSMENT AND PLAN: 1. Acute kidney injury on chronic kidney stage 5. Renal function is getting worse. The patient agr eed for dialysis. Plan is to start on dialysis. 2. Edema. 3. Diabetic nephropathy. 4. Hypokalemia. 5. Hypertension. 6. Proteinuria. 7. We will start on dialysis. Case management consult for outpatient placement.
[2018-07-17] MEDS: Famotidine 20 MG TAB PO SCH (20:49)
--- NOTE | 2018-07-17 21:39 | OP ---
DATE OF PROCEDURE: 07/05/2018 PREOPERATIVE DIAGNOSES: End-stage renal disease, poor IV access. POSTOPERATIVE DIAGNOSES: End-stage renal disease, poor IV access. PROCEDURE: Right IJ cuffed tunnel hemodialysis catheter. Right femoral vein central line. Note att empts at cannulating the left internal jugular vein were successful, but the J wire would not thread and the vein was very small. SURGEON: Dr. Storm Dalton. ANESTHESIA: Intravenous sedation, local 0.5% Marcaine with epinephrine 30 mL mixed with 2% Xylocaine , 10 mL. PROCEDURE IN DETAIL: Patient was taken to the operating room under intravenous sedation in supine po sition, neck and chest prepared with ChloraPrep, draped in routine fashion. Local anesthetic mixture was infiltrated into skin and subcutaneous tissue about the operative sites. Ultrasound guidance wa s used to cannulate the right internal jugular vein and J-wire threaded. I did visualize the left in ternal jugular vein and J-wire and trocar catheter. I could cannulate with good blood return, but th e J-wire would not thread defiant despite multiple attempts. At this point, a stab incision made ove r the right chest and incision large at the J-wire entrance site, right side of the neck and using th e tunneling device, the precurved angiodynamics. Cuffed tunnel hemodialysis catheter tunneled betwee n two incisions, placing the fabric cuff and the skin exit site and catheter secured with 2 interrupt ed sutures of 3-0 nylon. Biopatch sterile dressings applied. Smaller medium sized dilator was place d over the J-wire into the internal jugular vein and J-wire and dilator removed and catheter was plac ed with pull-away sheath. Pull-away sheath removed. Fluoroscopically, the catheter will be in good position as the platysma approximate 4-0 Monocryl, skin with subdermal 4-0 Monocryl and DermaGlue sandor lied. Each port aspirated blood and flushed with saline solution and heparinized saline solution 100 0 units heparin per mL indicated volume of the port. I then prepared the right groin and using Seldinger technique placing triple lumen catheter, secured with 3-0 nylon suture. Local anesthetic was used. Biopatch sterile dressing applied. Each port asp irated blood and flushed with saline solution.
[2018-07-18 05:18] LABS: Anion Gap 13 mmol/L (10-20); BUN (Urea Nitrogen) 41 mg/dL (9.8-20.1); Calc. Creatinine Clearance 17 mL/min (70-130); Calcium 7.1 mg/dL (7.8-10.44); Carbon Dioxide 23 mmol/L (23-31); Chloride 108 mmol/L (98-107); Estimated GFR-MDRD 16; Glucose 70 mg/dL (83-110); Potassium 3.7 mmol/L (3.5-5.1); Sodium 140 mmol/L (136-145)
[2018-07-18] MEDS ORDERED: Heparin 10,000 UNITS/ 10 ML VIAL ONE (07:58)
[2018-07-18] MEDS: NIFEdipine XL 30 MG TAB PO SCH (08:54)
[2018-07-18] MEDS: Saccharomyces boulardii 250 MG CAP PO SCH (08:54)
[2018-07-18] MEDS: Folic Acid/Vit B Comp W-C PO SCH (08:54)
[2018-07-18] MEDS: Fenofibrate Nanocrystallized 145 MG TAB PO SCH (08:54)
[2018-07-18] MEDS: Bumetanide 1 MG TAB PO SCH (08:54)
[2018-07-18] MEDS: Heparin 5,000 UNITS/ML VIAL SC SCH ×2 (08:55→20:22)
--- NOTE | 2018-07-18 09:56 | PRG ---
Patient Name: MARIE LANZA Date of service: 07/18/2018 Subjective: Patient was seen and examined at bedside and overnight events noted. Patient denies any shortness of breath or chest pain or palpitation. No history of nausea or vomiting or diarrhea or fever or chills or cramps. Objective: General: This is an alert female in no apparent distress. Vital signs: Temperature 98.7, pulse 80, respiratory rate 18, blood pressure 127/61. HEENT: Atraumatic, normocephalic. Oral mucosa is moist. Neck: Supple. Cardiovascular: S1 S2 heard. Rate and rhythm regular. Respiratory: Clear to auscultation. Gastrointestinal: Abdomen is soft. Musculoskeletal: No tenderness. No edema. Dermatologic: No skin rash. Neurologic: Alert and awake and oriented X3. No focal neurologic deficits. Moving all the extremit ies. Psychiatric: Mood and affect normal. LABORATORY DATA: Potassium is 3.7, BUN 21, creatinine is 2.8. ASSESSMENT AND PLAN: 1. End-stage renal disease. We will continue on dialysis. 2. Edema. 3. Diabetic nephropathy. 4. Hypokalemia. 5. Hypertension. 6. Proteinuria. The patient was started on dialysis, feeling better. We will continue on dialysis today and then payam lysis Tuesday, , and Tuesday.
[2018-07-18 12:57] VITALS: BMI 22.9
[2018-07-18] MEDS: cefTRIAXone\\ROCEPHIN 1 GM in Sodium Chloride 0.9% 100 ML IVPB SCH (19:52)
[2018-07-18] MEDS: Famotidine 20 MG TAB PO SCH (20:22)
--- NOTE | 2018-07-18 22:43 | PDOC.PN ---
- Subjective Encounter Start Date: 07/18/18 Encounter Start Time: 16:00 Subjective: nsg notes rev, tejal ovn, no new c/o at this point in time -: had HD earlier in the day, very minimal volume removal - Objective Vital Signs & Weight: Vital Signs (12 hours) Temp Pulse Pulse Pulse Pulse Pulse Resp 07/18/18 20:10 97.9 F 75 15 07/18/18 20:05 07/18/18 15:58 98.0 F 79 18 07/18/18 13:58 77 81 80 80 07/18/18 13:23 98.3 F 80 18 BP BP BP BP BP Pulse Ox Pulse Ox 07/18/18 20:10 158/70 H 100 07/18/18 20:05 100 07/18/18 15:58 134/62 100 07/18/18 13:58 155/70 H 101/59 L 112/57 L 126/60 100 07/18/18 13:23 166/74 H 97 Pulse Ox Pulse Ox Pulse Ox 07/18/18 20:10 07/18/18 20:05 07/18/18 15:58 07/18/18 13:58 98 100 96 07/18/18 13:23 Weight Admit Weight 137 lb 4.8 oz Weight 125 lb 8 oz I&O: 07/17/18 07/18/18 07/19/18 06:59 06:59 06:59 Intake Total 890 370 360 Output Total 600 0 200 Balance 290 370 160 Result Diagrams: 07/17/18 16:34 07/19/18 05:08 Additional Labs: Accuchecks 07/18/18 07/18/18 07/17/18 16:35 05:37 17:31 POC Glucose 84 77 86 Phys Exam - Physical Examination Constitutional: NAD lying on hospital bed HEENT: moist MMs Respiratory: no wheezing, no rales, no rhonchi, clear to auscultation bilateral marginal air mvmt Cardiovascular: RRR, no significant murmur, no rub Gastrointestinal: soft, non-tender, no distention, positive bowel sounds Musculoskeletal: pulses present Dx/Plan - Plan (1) ESRD needing dialysis Code(s): N18.6 - END STAGE RENAL DISEASE; Z99.2 - DEPENDENCE ON RENAL DIALYSIS Status: Acute appreciate nephrology c/s HD as tolerated (2) Nausea & vomiting Code(s): R11.2 - NAUSEA WITH VOMITING, UNSPECIFIED Status: Acute Qualifiers: Vomiting type: unspecified Vomiting Intractability: non-intractable Qualified Code(s): R11.2 - Nausea with vomiting, unspecified Comment: Secondary to uremia. Improving with HD Hypertension continue nifedipine emphysematous cystitis on both ceftriaxone and levaquin - UCx + GNR will d/w s/p 14d abx hypoK, hypoMg, resolved diet: as natasha, renal activity: as natasha, will need placement for extensive therapy dvt ppx
[2018-07-19 06:15] LABS: Anion Gap 11 mmol/L (10-20); BUN (Urea Nitrogen) 22 mg/dL (9.8-20.1); Calc. Creatinine Clearance 24 mL/min (70-130); Calcium 7.2 mg/dL (7.8-10.44); Carbon Dioxide 25 mmol/L (23-31); Chloride 107 mmol/L (98-107); Estimated GFR-MDRD 23; Glucose 85 mg/dL (83-110); Potassium 3.6 mmol/L (3.5-5.1); Sodium 139 mmol/L (136-145)
[2018-07-19] MEDS: READ PPD TEST SITE PO SCH ×2 (08:26→13:36)
--- NOTE | 2018-07-19 09:13 | PRG ---
Patient Name: MARIE LANZA Date of service: 07/19/2018 Subjective: Patient was seen and examined at bedside and overnight events noted. Patient denies any shortness of breath or chest pain or palpitation. No history of nausea or vomiting or diarrhea or fever or chills or cramps. Objective: General: This is a well-built female in no apparent distress. Vital signs: Temperature 97, pulse 74, respiratory rate 16, blood pressure 134/62. HEENT: Atraumatic, normocephalic. Oral mucosa is moist. Neck: Supple. Cardiovascular: S1 S2 heard. Rate and rhythm regular. Respiratory: Clear to auscultation. Gastrointestinal: Abdomen is soft. Musculoskeletal: No tenderness. No edema. Dermatologic: No skin rash. Neurologic: Alert and awake and oriented X3. No focal neurologic deficits. Moving all the extremit ies. Psychiatric: Mood and affect normal. LABORATORY DATA: Potassium is 3.6, BUN 22, creatinine is 2.08. ASSESSMENT AND PLAN: 1. End-stage renal disease. We will continue dialysis. 2. Edema, remove fluid if tolerated. Hold blood pressure medicine before dialysis. 3. Hypokalemia. 4. Hypertension. 5. Proteinuria. Consult case management for outpatient placement. Hold blood pressure medicines before dialysis.
[2018-07-19] MEDS: NIFEdipine XL 30 MG TAB PO SCH (09:30)
[2018-07-19] MEDS: Saccharomyces boulardii 250 MG CAP PO SCH (09:30)
[2018-07-19] MEDS: Fenofibrate Nanocrystallized 145 MG TAB PO SCH (09:30)
[2018-07-19] MEDS: Folic Acid/Vit B Comp W-C PO SCH (09:30)
[2018-07-19] MEDS: Bumetanide 1 MG TAB PO SCH (09:30)
[2018-07-19] MEDS: Heparin 5,000 UNITS/ML VIAL SC SCH (09:30)
[2018-07-19 13:10] VITALS: TEMP 99
[2018-07-19 16:11] VITALS: BP 169/69
== END 2018-07-19 17:30 | DRG 689 ==
LOC: ERS 13:27 → 2NO 19:19
PROVIDERS: ADMIT Internal Medicine; ATTEND Internal Medicine
PROC: 02PYX3Z Removal of Infusion Device from Great Vessel, External Approach (ICD-10-PCS; principal; 2018-07-05)
PROC: 05HM33Z Insertion of Infusion Device into Right Internal Jugular Vein, Percutaneous Approach (ICD-10-PCS; 2018-07-17)
PROC: B543ZZA Ultrasonography of Right Jugular Veins, Guidance (ICD-10-PCS; 2018-07-17)
DX: N30.80 Other cystitis without hematuria (principal); N18.6 End stage renal disease; N17.9 Acute kidney failure, unspecified; Z99.2 Dependence on renal dialysis; E11.22 Type 2 diabetes mellitus with diabetic chronic kidney disease; I12.9 Hypertensive chronic kidney disease with stage 1 through stage 4 chronic kidney disease, or unspecified chronic kidney disease; Z79.899 Other long term (current) drug therapy; Z79.4 Long term (current) use of insulin; E87.6 Hypokalemia; I16.0 Hypertensive urgency; E83.42 Hypomagnesemia; R80.9 Proteinuria, unspecified; E11.21 Type 2 diabetes mellitus with diabetic nephropathy; I95.9 Hypotension, unspecified; D63.1 Anemia in chronic kidney disease; R11.2 Nausea with vomiting, unspecified; R60.1 Generalized edema
CPT/HCPCS: 20225; 36415; 36416; 71045; 72192; 74018; 76700; 77002; 80048; 80053; 81003; 81015; 82533; 83605; 83735; 83880; 85025; 85097; 85610; 85730; 86580; 86704; 86706; 86803; 87077; 87086; 87324; 87340; 87449; 88184; 88237; 88264; 88280; 88305; 88311; 88313; 88341; 88342; 93005; 93306; 93970; 96365; C1752; C1769; G0365; G8978-GP-CM; G8979-GP-CK; G8987-GO-CK; G8988-GO-CJ; J0670; J0696; J1642; J1644; J1940; J1956; J2405; J2550; J2704; J3010; J3475; J3480; J7050

== ENCOUNTER 2018-09-27 08:18 | Day surgery (SDC) | payer MEDICARE, BC ==
--- NOTE | 2018-09-26 14:05 | HP ---
HISTORY OF PRESENT ILLNESS: Luisana Escalante is a 73-year-old female, lives at [place], [place], dialyzes [facility] in [place], Tuesday, Tuesday, and Tuesday at 11:00 a.m. I saw her on July 05, [facility], at which time, she presented with renal failure and had a left arm PICC line that I immediately removed. She had ultrasound vein mapping noting the veins to be of poor quality. Dr. Lerma is her broker and I have been asked to see regarding more permanent dialysis access. She arrives in office in a wheelchair accompanied by her . Considering her poor veins and her being right-handed, plan is for a left arm fistula more likely prosthetic graft under regional and TIVA anesthesia as an outpatient. We will try to arrange for surgery on earlier morning of dialysis day and reschedule her dialysis to the next day, consider the holiday schedule and delayed scheduling if we were to try to schedule her on a nondialysis day. PAST MEDICAL HISTORY: End-stage renal disease, on maintenance dialysis, [facility], [place], 11:00 a.m. Tuesday, Tuesday, and Tuesday, followed by Dr. Lerma, Inspector Eyeglass, John, who has referred her; hypertension; muscle wasting; weakness; poor mobility; GERD without esophagitis; iron-deficiency anemia; and type 2 diabetes mellitus. PAST SURGICAL HISTORY: Cholecystectomy, appendectomy, hysterectomy, right carotid endarterectomy by Dr. Carlin at [facility], PICC line, left arm, last hospitalization in June that I removed. ALLERGIES: NONE. TOBACCO: None. ALCOHOL: None. PRIMARY CARE PHYSICIAN: In the past, . MEDICATIONS: 1. Senna 8.6 mg at bedtime. 2. Simethicone 80 mg as needed. 3. Protein diet supplements for poor appetite. 4. Tums as needed for indigestion, Tums with meals. 5. Lantus Solostar at bedtime 5 units. 6. Zofran p.r.n. 7. Nitroglycerin p.r.n. 8. MiraLAX daily. 9. Amlodipine 2.5 mg at bedtime, on nondialysis days. 10. Tylenol p.r.n. PHYSICAL EXAMINATION: VITAL SIGNS: 5 feet 2 inches, 97 degrees. HEAD, EARS, EYES, NOSE, AND THROAT: Unremarkable. LUNGS: Clear to auscultation. CARDIAC: Regular rate and rhythm without murmur or gallop. ABDOMEN: Soft and nontender. EXTREMITIES: Right IJ cuffed tunneled dialysis catheter. Palpable radial pulses, both wrist, nonvisible veins both arms. ASSESSMENT AND PLAN: 1. End-stage renal disease. Plan for placement of left arm fistula, most likely prosthetic graft. Risks and benefits discussed. She consents. 2. Type 2 diabetes mellitus. 3. Hypertension. 4. Deconditioning in the [facility]. Job ID: [id number]
[2018-09-26 16:27] VITALS: BMI 22.3
[2018-09-27 09:46] LABS: #Basophils 0.1 thou/uL (0.0-0.2); #Eosinphils 0.1 thou/uL (0.0-0.7); #Lymphocytes 1.1 thou/uL (1.20-3.40); #Monocytes 0.3 thou/uL (0.11-0.59); #Neutrophils 2.4 thou/uL (1.40-6.50); %Basophils 1.3 % (0.0-1.0); %Eosinophils 2.9 % (0.0-10.0); %Lymphocytes 27.7 % (21.0-51.0); %Monocytes 8.2 % (0.0-10.0); %Neutrophils 59.9 % (42.0-75.0); Hemoglobin 12.9 g/dL (12.0-16.0); Mean Corpuscular HGB CONC 30.8 g/dL (32.0-36.0); Mean Corpuscular Hemoglobin 31.3 pg (27.0-31.0); Mean Platelet Volume 9.3 fL (7.4-10.4); Platelet Count 150 thou/uL (130-400); RBC Distribution Width 11.9 % (11.5-14.5); Red Blood Cell (RBC) Count 4.12 mill/uL (4.20-5.40); White Blood Cell (WBC) Count 4.1 thou/uL (4.8-10.8)
[2018-09-27 09:49] LABS: Anion Gap 11 mmol/L (10-20); BUN (Urea Nitrogen) 44 mg/dL (9.8-20.1); Calc. Creatinine Clearance 14 mL/min (70-130); Calcium 8.6 mg/dL (7.8-10.44); Carbon Dioxide 26 mmol/L (23-31); Chloride 104 mmol/L (98-107); Estimated GFR-MDRD 14; Glucose 144 mg/dL (83-110); Potassium 3.9 mmol/L (3.5-5.1); Sodium 137 mmol/L (136-145)
[2018-09-27] MEDS ORDERED: CEFAZOLIN 2 GM/50 ML BAG ONE (10:08)
[2018-09-27] MEDS ORDERED: Heparin 5,000 UNITS/ML VIAL ONE (10:50)
[2018-09-27] MEDS ORDERED: Protamine Sulfate 50 MG/5 ML VIAL ONE (10:50)
[2018-09-27] MEDS ORDERED: Lidocaine 2% PF 5 ML VIAL ONE (10:50)
[2018-09-27] MEDS ORDERED: Bupivacaine/Epinephrine 0.25% 30 ML VIAL ONE (10:50)
[2018-09-27] MEDS ORDERED: Fentanyl 100 MCG/2 ML VIAL ONE ×2 (10:58→11:00)
[2018-09-27] MEDS ORDERED: Propofol 500 MG/50 ML VIAL ONE (11:00)
[2018-09-27] MEDS ORDERED: Heparin 10,000 UNITS/ 10 ML VIAL ONE (13:19)
--- NOTE | 2018-09-27 15:40 | OP ---
DATE OF PROCEDURE: 09/27/2018 PREOPERATIVE DIAGNOSES: End-stage renal disease, poor veins by ultrasound vein mapping. POSTOPERATIVE DIAGNOSES: End-stage renal disease, poor veins by ultrasound vein mapping. PROCEDURE PERFORMED: Left arm arteriovenous fistula, perforating branch antecubital vein to proximal radial artery of excellent caliber without significant arteriosclerotic disease with outflow through the basilic vein and retrograde antecubital vein flow maintained. Cephalic vein outflow not present. Note, the exploration of left wrist revealed inadequate vein for a Nini fistula. This was closed. ANESTHESIA: Regional, TIVA. ESTIMATED BLOOD LOSS: Less than 50 mL. DESCRIPTION OF PROCEDURE: The patient was taken to the operating room, where under regional anesthesia, the left upper extremity was prepared with ChloraPrep and draped in routine fashion. An incision was made in the proximal volar forearm longitudinally below the antecubital fossa carrying down to the skin and subcutaneous tissue and a larger vein than expected was encountered contrary to vein mapping. Cephalic vein was not present. It was fibrosed. Perforating branch antecubital vein was dissected free. Branches were divided between 4-0 silk ties and clips immobilizing it. The vein was large enough that an incision was made in the cephalic vein. The wrist was too small for Nini fistula and this wound was closed by approximating subcutaneous tissue with 3-0 Monocryl and skin with subdermal 4-0 Monocryl. Attention was turned to the antecubital wound proximal forearm, where the antecubital vein once mobilized. The patient was given 6000 units of heparin intravenously. Vein spatulated over branch points and interrogated with coronary dilators, passing coronary dilators from 2 mm to 3.5 mm coronary dilator at the basilic vein outflow. It was flushed with heparinized saline solution. Atraumatic bulldog clamps were used for hemostasis. Brachial, ulnar, and radial artery were dissected free, controlled with vascular clamps. Longitudinal arteriotomy was made in the proximal radial artery. Longitudinal arteriotomy was made with Andrade scissors. Perforating branch antecubital vein anastomosed to the side of the proximal radial artery using continuous suture of 6-0 Prolene. Vascular clamps were released and there was good outflow in the basilic vein evident by Doppler interrogation. The patient had good hemostasis noted. The patient was given 25 mg of protamine intravenously by Anesthesia. Sponge and needle counts were correct. The subcutaneous tissue was approximated with 3-0 Monocryl, skin with subdermal 4-0 Monocryl, and [place] glue applied. The patient will need a basilic vein transposition of fistula in the future. Job ID: [id number]
== END 2018-09-28 13:58 | disposition home or self-care (01) ==
LOC: SDC 08:18
PROVIDERS: ATTEND Specialist
PROC: 03180ZD Bypass Left Brachial Artery to Upper Arm Vein, Open Approach (ICD-10-PCS; principal; 2018-09-27)
DX: I12.0 Hypertensive chronic kidney disease with stage 5 chronic kidney disease or end stage renal disease (principal); E11.22 Type 2 diabetes mellitus with diabetic chronic kidney disease; N18.6 End stage renal disease; D63.1 Anemia in chronic kidney disease; I87.8 Other specified disorders of veins; K21.9 Gastro-esophageal reflux disease without esophagitis; E78.5 Hyperlipidemia, unspecified; Z79.4 Long term (current) use of insulin; Z79.899 Other long term (current) drug therapy; Z99.2 Dependence on renal dialysis
CPT/HCPCS: 80048; 85025; J1644; J2001; J2704; J2720; J3010

== ENCOUNTER 2018-10-24 10:11 | Day surgery (SDC) | payer MEDICARE, BC ==
--- NOTE | 2018-10-20 12:54 | HP ---
HISTORY OF PRESENT ILLNESS: Luisana Escalante is a 73-year-old female, lives in [facility], had a left arm AV fistula on 09/27/2018, finding the cephalic vein at the wrist and adequate for a Nini fistula, undergoing proximal radial artery outflow, basilic vein only, retrograde antecubital vein preserved. Cephalic vein outflow was not present. The patient's plan is for a left arm basilic vein transposition under regional anesthesia as outpatient. The patient was followed by Dr. Seth and Dr. Torres. She dialyzes Tuesday, Tuesday, and Tuesday at [facility]. She is a resident of [facility]. Plan is for her to follow up with me in 2 weeks. Risks and benefits explained, she consents. MEDICATIONS: 1. Tramadol p.r.n. pain. 2. Tums p.r.n. 3. Senna daily. 4. Lantus SoloStar 8 units at bedtime. 5. MiraLAX daily. 6. Nitroglycerin p.r.n. 7. Estrace. 8. Cranberry. 9. Amlodipine 5 mg a day. 10. Acetaminophen p.r.n. PAST MEDICAL HISTORY: End-stage renal disease, on maintenance dialysis; hypertension; muscle wasting; GERD; chronic anemia; and type 2 diabetes mellitus. PAST SURGICAL HISTORY: Cholecystectomy, appendectomy, hysterectomy, right carotid endarterectomy, [facility], placed PICC line in the left arm in the past. ALLERGIES: NONE. SOCIAL HISTORY: Tobacco, none. Alcohol, none. PHYSICAL EXAMINATION: VITAL SIGNS: Weight 118 pounds, height 62 inches. Blood pressure 191/64, heart rate 88, and axilla temperature 97.3 degrees. HEAD, EARS, EYES, NOSE, AND THROAT: Unremarkable. LUNGS: Clear to auscultation. CARDIAC: Regular rate and rhythm without murmur or gallop. ABDOMEN: Soft and nontender. No masses. EXTREMITIES: Left arm, good thrill and bruit. Fistula wound well healed. ASSESSMENT AND PLAN: Basilic vein transposition fistula. Plan as an outpatient on regional anesthesia. Job ID: [id number]
[2018-10-23 12:27] VITALS: BMI 22.3
[2018-10-24] MEDS ORDERED: CEFAZOLIN 2 GM/50 ML BAG ONE (11:02)
[2018-10-24 11:18] LABS: #Eosinphils 0.1 thou/uL (0.0-0.7); #Monocytes 0.5 thou/uL (0.11-0.59); #Neutrophils 2.7 thou/uL (1.40-6.50); %Eosinophils 2.7 % (0.0-10.0); %Lymphocytes 22.4 % (21.0-51.0); Hemoglobin 11.5 g/dL (12.0-16.0); Mean Corpuscular HGB CONC 33.4 g/dL (32.0-36.0); Mean Corpuscular Hemoglobin 31.9 pg (27.0-31.0); Mean Corpuscular Volume 95.6 fL (78.0-98.0); Mean Platelet Volume 8.8 fL (7.4-10.4); Platelet Count 145 thou/uL (130-400); RBC Distribution Width 11.7 % (11.5-14.5); Red Blood Cell (RBC) Count 3.62 mill/uL (4.20-5.40); White Blood Cell (WBC) Count 4.4 thou/uL (4.8-10.8)
[2018-10-24 11:39] LABS: Anion Gap 10 mmol/L (10-20); BUN (Urea Nitrogen) 53 mg/dL (9.8-20.1); Calc. Creatinine Clearance 17 mL/min (70-130); Calcium 9.2 mg/dL (7.8-10.44); Carbon Dioxide 29 mmol/L (23-31); Chloride 98 mmol/L (98-107); Estimated GFR-MDRD 18; Potassium 3.7 mmol/L (3.5-5.1); Sodium 133 mmol/L (136-145)
[2018-10-24] MEDS ORDERED: Lidocaine 2% 11 ML SYR ONE (12:54)
[2018-10-24] MEDS ORDERED: Heparin 5,000 UNITS/ML VIAL ONE (12:54)
[2018-10-24] MEDS ORDERED: Bupivacaine HCl 0.5%/Epinephrine 1:200,000/PF 30 ml Vial ONE ×2 (12:54→13:42)
[2018-10-24] MEDS ORDERED: Lidocaine 2% PF 5 ML VIAL ONE ×2 (12:56→14:05)
[2018-10-24] MEDS ORDERED: Fentanyl 100 MCG/2 ML VIAL ONE (12:57)
[2018-10-24 13:14] LABS: Glucose 118 mg/dL (83-110)
[2018-10-24] MEDS ORDERED: Ioversol 68 % 50 ML VIAL ONE (14:09)
[2018-10-24] MEDS ORDERED: Protamine Sulfate 50 MG/5 ML VIAL ONE (14:09)
[2018-10-24] MEDS ORDERED: PROPOFOL 40 ML ONE (14:21)
[2018-10-24] MEDS ORDERED: Heparin 10,000 UNITS/ 10 ML VIAL ONE ×3 (14:24→16:13)
[2018-10-24] MEDS ORDERED: PROPOFOL 200 MG/20 ML VIAL ONE (14:24)
[2018-10-24] MEDS ORDERED: ePHEDrine/0.9% NaCl/PF SYRINGE 50 mg/10 ml ONE (14:24)
[2018-10-24] MEDS ORDERED: PHENYLEPHRINE-NS 100 MCG/ML 10 ML SYRINGE ONE (14:24)
--- NOTE | 2018-10-24 22:35 | OP ---
DATE OF PROCEDURE: 10/24/2018 PREOPERATIVE DIAGNOSIS: End-stage renal disease, occluded cephalic vein outflow. POSTOPERATIVE DIAGNOSIS: End-stage renal disease, occluded cephalic vein outflow. PROCEDURE PERFORMED: Left arm basilic vein transposition fistula. ANESTHESIA: Regional TIVA, local of 0.5% Marcaine with epinephrine 30 mL mixed to Xylocaine 10 mL, 20 mL mixture used. ESTIMATED BLOOD LOSS: 37 mL. DESCRIPTION OF PROCEDURE: The patient was taken to the operating room, where under intravenous sedation and regional anesthesia, left upper extremity was prepared with ChloraPrep and draped in routine fashion. Incision was made from the left axilla of the proximal volar forearm through the old scar and carried down the skin and subcutaneous tissue. The basilic vein dissected free, dividing branches between 4-0 silk ties and clips immobilizing it, marking it for orientation. A Sally-Ryan tunneler was used to create a tunnel in the anterior upper arm between the proximal volar forearm and the axilla. The patient was given 6000 units of heparin intravenously. After adequate circulation time, vascular clamp was placed across the arterial inflow with the basilic vein near the proximal forearm and vein, divided, connected to the tunneler, placed in the tunnel and flushed with heparinized saline solution, where it was noted to flow well and then end-vein to end-vein anastomosis was created with spatulating both with continuous suture of 6-0 Prolene used for the anastomosis. Vascular clamps released. There was good flow in the fistula, good hemostasis. The patient was given 50 mg of protamine intravenously by Anesthesia. Surgiflo was also placed in the harvest bed, which had been inspected and good hemostasis obtained. The subcutaneous tissue was approximated with 3-0 Monocryl continuous suture, skin with reji. Sterile dressing applied. The patient tolerated the procedure well. Job ID: [id number]
--- NOTE | 2018-10-27 20:31 | EKG ---
Test Reason : PREOP Blood Pressure : / mmHG Vent. Rate : 085 BPM Atrial Rate : 085 BPM P-R Int : 148 ms QRS Dur : 074 ms QT Int : 352 ms P-R-T Axes : 040 030 004 degrees QTc Int : 418 ms Sinus rhythm with Premature atrial complexes Nonspecific T wave abnormality Abnormal ECG When compared with ECG of 05-JUL-2018 17:14, Premature atrial complexes are now Present Criteria for Inferior infarct are no longer Present T wave inversion no longer evident in Anterior leads Confirmed by Heaven OLIVAREZ ([id number]) on 10/27/2018 8:31:41 PM Referred By: LORI Confirmed By:Heaven OLIVAREZ
== END 2018-10-24 16:30 | disposition home or self-care (01) ==
LOC: SDC 10:11
PROVIDERS: ATTEND Specialist
PROC: 05SC0ZZ Reposition Left Basilic Vein, Open Approach (ICD-10-PCS; principal; 2018-10-24)
DX: I12.0 Hypertensive chronic kidney disease with stage 5 chronic kidney disease or end stage renal disease (principal); E11.22 Type 2 diabetes mellitus with diabetic chronic kidney disease; N18.6 End stage renal disease; D63.1 Anemia in chronic kidney disease; K21.9 Gastro-esophageal reflux disease without esophagitis; Z79.4 Long term (current) use of insulin; Z79.899 Other long term (current) drug therapy; Z99.2 Dependence on renal dialysis
CPT/HCPCS: 36415; 36416; 80048; 85025; 93005; 93010; J0670; J1644; J2001; J2704; J2720; J3010; Q9967

== ENCOUNTER 2018-12-28 07:05 | Day surgery (SDC) | payer MEDICARE, BC ==
[2018-12-27 12:58] VITALS: BMI 22.3
[2018-12-28] MEDS ORDERED: Iopamidol 300 61% 100 ML VIAL FS ONE (13:27)
--- NOTE | 2018-12-28 13:59 | SPC ---
LEFT UPPER EXTREMITY DIALYSIS FISTULOGRAM: SONOGRAPHIC GUIDED VASCULAR ACCESS: HISTORY: Renal failure. Poor function of a new basilic dialysis fistula. FLUOROSCOPY TIME: 1.9 minutes TECHNIQUE: A total of two percutaneous vascular accesses, left upper extremity dialysis fistula. Percutaneous balloon angioplasty, left upper extremity dialysis fistula. After explaining the procedure and obtaining informed consent, sonographic evaluation of the left upp er arm was performed. A large and pulsatile cephalic vein was visualized. The brachial vein is very small. A n extensive search for the basilic vein, in the region of prior surgical transposition, fa iled to visualize a basilic vein. Sterile technique, buffered local anesthesia, sonographic guidance, and a 22 gauge needle were used t o carefully access the left cephalic fistula, at the level of the mid humeral shaft, directed toward the arterial inflow. Serial imaging was performed. The cephalic vein is patent. Skin reji are n oted near the left axilla. At the upper cephalic vein, there are two short segment foci of high-grad e stenosis. The normal vein, at this level, measures between 6 and 7 mm. The superior vena cava is patent. Reflux angiography shows the arterial anastomosis to be widely patent. Flow was seen into a brachial vein but not into the basilic vein. A second vascular access was obtained, at the level of the distal humerus, directed toward the venous outflow, for balloon dilatation. A 6 [place] sheath was placed. A 5 mm x 4 cm balloon was carefully placed at the level of stenosis, at the upper cephalic vein. Multiple dilatations were performed, i mproving caliber somewhat, with significant stenosis remaining. A 6 mm x 2 cm balloon was then placed at the level of stenoses, and serial dilatation was performed. Final images showed resolution of the strictures with near normal caliber of the cephalic vein at th is level. Good flow was demonstrated throughout the cephalic fistula. The catheters were removed, and hemostasis was obtained using direct pressure. The patient tolerated the procedure well and was returned to holding in good condition for further monitoring. IMPRESSION: 1. Good arteriovenous dialysis fistula flow throughout the now somewhat enlarged left cephalic vein with successful balloon angioplasty of the venous outflow. 2. The basilic vein was not opacified and was presumed to be nonpatent. Findings were called to Dr. Dalton at the time of the exam. CODE CR POS: JESSICA
== END 2018-12-28 09:30 | disposition home or self-care (01) ==
LOC: SPEC 07:05
PROVIDERS: ATTEND Specialist
PROC: 057F3ZZ Dilation of Left Cephalic Vein, Percutaneous Approach (ICD-10-PCS; principal; 2018-12-28)
DX: T82.858A Stenosis of other vascular prosthetic devices, implants and grafts, initial encounter (principal); I12.0 Hypertensive chronic kidney disease with stage 5 chronic kidney disease or end stage renal disease; E11.22 Type 2 diabetes mellitus with diabetic chronic kidney disease; N18.6 End stage renal disease; D63.1 Anemia in chronic kidney disease; Z79.4 Long term (current) use of insulin; Z79.899 Other long term (current) drug therapy; Z99.2 Dependence on renal dialysis
CPT/HCPCS: 36901; 36902; C1725